=== PATIENT | male | born 1945 | race Caucasian/White ===

== ENCOUNTER 2021-11-10 07:54 | Outpatient (CLI) | payer MEDICARE, SELFPAY | END 2021-11-10 07:55 | disposition home or self-care (01) | LOC: ANHAUDIO 07:55 | PROVIDERS: PCP Family Medicine; Visit Provider Otolaryngology | DX: H90.3 Sensorineural hearing loss, bilateral (principal) | CPT/HCPCS: 92557; 92567 ==

== ENCOUNTER 2021-11-22 10:41 | Outpatient (CLI) | payer MEDICARE, SELFPAY ==
--- NOTE | ~2021-11-22 | MR_ITS ---
EXAMINATION: MR brain IAC wo/w con DATE: 11/22/2021 12:47 INDICATION: Sudden idiopathic hearing loss, left ear. TECHNIQUE: Magnetic resonance imaging (MRI) of the brain, brainstem, and internal auditory canals was performed without and with 20 mL MultiHance intravenous contrast. Sequences included sagittal and ax ial T1-weighted FSE, axial diffusion-weighted FS EPI, axial T2*-weighted GRE, axial T2-weighted FLAIR Propeller, axial T2-weighted Propeller, small kryzd-tb-nmbw coronal FIESTA, small ymzwj-xt-qugk [place] nal T1-weighted FSE, and small nttct-vx-gdcb axial T1-weighted SPGR. Postcontrast sequences included axial T1-weighted FSE, small gcqvo-en-redc coronal T1-weighted FSE, and small dubru-gb-yglk axial T1- weighted SPGR. Apparent diffusion coefficient (ADC) maps were created. COMPARISON: None. FINDINGS: There are scattered areas of nonspecific increased T2-weighted signal intensity in the cere bral white matter, which is within normal limits for the patient's age. There is no intracranial hemo rrhage, acute infarction, or abnormal intracranial mass lesion. The ventricles are normal in size. Th ere is mild mucosal thickening in the paranasal sinuses. The internal auditory canals and inner and m iddle ears are normal. The mastoid air cells are normal. The orbits are normal. IMPRESSION: 1. Normal aging brain. Reviewed, dictated and finalized at location B. [facility] IMPRESSION: 1. Normal aging brain.
[2021-11-22 12:03] LABS: Estimated Glomerular Filt Rate > 60
== END 2021-11-22 10:42 | disposition home or self-care (01) ==
LOC: ANHIMG 10:48
PROVIDERS: PCP Family Medicine; Visit Provider Otolaryngology
DX: H91.22 Sudden idiopathic hearing loss, left ear (principal)
CPT/HCPCS: 70553; A9577

== ENCOUNTER 2022-03-01 09:12 | Outpatient (CLI) | payer MEDICARE, SELFPAY ==
--- NOTE | 2022-03-01 11:15 | NEURO_ITS ---
Impression: # Complains of left upper extremity numbness with involvement of 5th finger. # Bilateral ulnar neuropathy, left more than right, across the elbows. # No Carpal Tunnel Syndrome. # Abnormal needle/EMG exam. # Clinical correlation recommended. Nerve Conduction Studies Anti Sensory Summary Table Stim Site NR Peak (ms) P-T Amp (?V) Site1 Site2 Delta-P (ms) Dist (cm) Jeff (m/s) Left Median Anti Sensory (2-3nd Digit) Wrist 3.3 14.8 Wrist 2-3nd Digit 3.3 14.0 42 Wrist 3.7 29.3 Wrist 2-3nd Digit 3.3 14.0 42 Right Median Anti Sensory (2-3nd Digit) Wrist 3.1 15.2 Wrist 2-3nd Digit 3.1 14.0 45 Wrist 3.3 26.1 Wrist 2-3nd Digit 3.1 14.0 45 Left Radial Anti Sensory (Base 1st Digit) Wrist 2.0 30.1 Wrist Base 1st Digit 2.0 0.0 Right Radial Anti Sensory (Base 1st Digit) Wrist 2.1 20.2 Wrist Base 1st Digit 2.1 0.0 Left Ulnar Anti Sensory (5th Digit) Wrist 2.8 18.2 Wrist 5th Digit 2.8 14.0 50 Right Ulnar Anti Sensory (5th Digit) Wrist 2.9 11.8 Wrist 5th Digit 2.9 14.0 48 Motor Summary Table Stim Site NR Onset (ms) O-P Amp (mV) Site1 Site2 Delta-0 (ms) Dist (cm) Jeff (m/s) Left Median Motor (Abd Poll Brev) Wrist 3.9 0.7 Elbow Wrist 5.6 32.0 57 Elbow 9.5 0.4 Right Median Motor (Abd Poll Brev) Wrist 3.4 2.8 Elbow Wrist 5.0 30.0 60 Elbow 8.4 2.4 Left Ulnar Motor (Abd Dig Minimi) Wrist 2.7 6.2 A Elbow Wrist 6.5 32.0 49 A Elbow 9.2 4.9 B Elbow Wrist 4.3 27.0 63 B Elbow 7.0 5.0 Right Ulnar Motor (Abd Dig Minimi) Wrist 2.8 4.8 A Elbow Wrist 6.0 31.0 52 A Elbow 8.8 3.9 B Elbow Wrist 4.5 24.0 53 B Elbow 7.3 2.5 F Wave Studies NR F-Lat (ms) L-R F-Lat (ms) Left Median (Mrkrs) (Abd Poll Brev) 30.93 1.40 Right Median (Mrkrs) (Abd Poll Brev) 29.53 1.40 Left Ulnar (Mrkrs) (Abd Dig Min) 32.86 1.72 Right Ulnar (Mrkrs) (Abd Dig Min) 31.14 1.72 EMG Side Muscle Nerve Root Ins Act Fibs Amp Dur Recrt Comment Right 1stDorInt Ulnar C8-T1 Nml Nml Nml Nml Nml Right Ext Indicis Radial (Post Int) C7-8 Nml Nml Nml Nml Nml Right Ext Digitorum Radial (Post Int) C7-8 Nml Nml Nml Nml Nml Right BrachioRad Radial C5-6 Nml Nml Nml Nml Nml Right PronatorTeres Median C6-7 Nml Nml Nml Nml Nml Right Abd Poll Brev Median C8-T1 Nml Nml Nml Nml Nml Left 1stDorInt Ulnar C8-T1 Nml Nml Incr >12ms Reduced Left Ext Indicis Radial (Post Int) C7-8 Nml Nml Nml Nml Nml Left Ext Digitorum Radial (Post Int) C7-8 Nml Nml Nml Nml Nml Left BrachioRad Radial C5-6 Nml Nml Nml Nml Nml Left PronatorTeres Median C6-7 Nml Nml Nml Nml Nml Left Abd Poll Brev Median C8-T1 Nml Nml Nml Nml Nml Right ABD Dig Min Ulnar C8-T1 Nml Nml Nml Nml Nml Right Biceps Musculocut C5-6 Nml Nml Nml Nml Nml Right Triceps Radial C6-7-8 Nml Nml Nml Nml Nml Right Deltoid Axillary C5-6 Nml Nml Nml Nml Nml Left ABD Dig Min Ulnar C8-T1 Nml Nml Nml Nml Nml Left Biceps Musculocut C5-6 Nml Nml Nml Nml Nml Left Triceps Radial C6-7-8 Nml Nml Nml Nml Nml Left Deltoid Axillary C5-6 Nml Nml Nml Nml Nml MTDD
== END 2022-03-01 09:13 | disposition home or self-care (01) ==
PROVIDERS: PCP Family Medicine; Visit Provider Orthopaedic Surgery Hand Surgery
DX: M19.011 Primary osteoarthritis, right shoulder (principal); G56.23 Lesion of ulnar nerve, bilateral upper limbs
CPT/HCPCS: 95886; 95911

== ENCOUNTER 2025-02-11 11:01 | Outpatient (CLI) | payer MEDICARE, SELFPAY ==
--- NOTE | ~2025-02-11 | CT_ITS ---
Non-contrast CT scan of the Abdomen and Pelvis Clinical indication: Ureteral stone Technique: 2.5 mm axial scans were obtained through the abdomen and pelvis without intravenous or or al contrast. Dose reduction technique was used on this scan by utilizing automated exposure control a nd iterative reconstruction technique. The dose-length product (DLP) was 965.52 mGy-cm. Findings: Images through the lung bases reveal no abnormalities. There is a 1.5 x 1.2 cm ovoid stone at the left renal pelvis/UPJ, without claudia hydronephrosis. Addit ional 1.1 cm nonobstructing left stone present. There are additional smaller stones the left lower re nal pole. 7 mm nonobstructing right renal stone present. No right ureteral stone or right hydronephro sis. The liver, spleen, pancreas, gallbladder, and adrenals appear normal. There are atherosclerotic calci fications of the aorta. There is no evidence of bowel obstruction. Images through the pelvis were performed. There is no evidence of ascites or lymphadenopathy. Urinary bladder unremarkable. Prostate gland is enlarged. Impression: 1.5 x 1.2 cm stone at the left UPJ/left renal pelvis. Additional bilateral renal stones, as above. No hydronephrosis. Reviewed, dictated and finalized at location . Impression: 1.5 x 1.2 cm stone at the left UPJ/left renal pelvis. Additional bilateral qi l stones, as above. No hydronephrosis.
== END 2025-02-11 11:02 | disposition home or self-care (01) ==
LOC: GOSHIMG 11:01
PROVIDERS: PCP Family Medicine; Visit Provider Family Medicine
DX: N20.1 Calculus of ureter (principal)
CPT/HCPCS: 74176

== ENCOUNTER 2025-02-21 07:52 | Outpatient (CLI) | payer MEDICARE, SELFPAY ==
--- OUTSIDE RECORDS SUMMARY | 2025-02-21 07:56 | XMS_ITS | Data Portability ---
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 He is a previous patient of Dr. Palacios, and had a left reverse total shoulder arthroplasty in March of this year. That is doing well, he has no complaints. He also has right shoulder osteoarthritis, which is been treated non operatively. He got an injection back in June, and reports that lasted up until couple of weeks ago. He returns for a repeat injection on his right side. He has diffuse soreness around his shoulder. Elevation to 100, 30 of external rotation, internal rotation to lower lumbar. He has 5/5 rotator cuff strength. Neurovascular intact. Previous x-rays reviewed, RTSA on the left side, ngrx-ht-awjc arthritis of the glenohumeral joint on the right. We will continue conservative management for his right shoulder osteoarthritis. We repeated the cortisone injection today and he tolerated well. He wants to have surgery for reverse total shoulder arthroplasty next March. We will plan to see him back in 3 months in December, and can consider repeat cortisone injection at that time. He may call us with any question or concerns before then. At his next visit, we will also order a CT scan for preop planning. [email or web address] Not available 10/09/2023 12:22:19 03/18/2024 03/18/2024 78-year-old male presents for follow up of his right shoulder. He is a previous patient of Dr. Palacios, and had a left reverse total shoulder arthroplasty in March of last year. He has right shoulder osteoarthritis, which is been treated non operatively with cortisone injections. He got an injection back in October, and reports that lasted up until couple of weeks ago. He returns for a repeat injection on his right side. He has diffuse soreness around his shoulder. Elevation to 100, 30 of external rotation, internal rotation to lower lumbar. He has 5/5 rotator cuff strength. Neurovascular intact. We will continue conservative management for his right shoulder osteoarthritis. We repeated the cortisone injection today and he tolerated well. He wants to have surgery for reverse total shoulder arthroplasty next March. He originally wanted it this March, but decided to work through the summer and wants to try again next year. We will plan to see him back in 3 months for repeat cortisone injection. [email or web address] Not available 03/18/2024 11:34:44 08/04/2024 08/04/2024 The patient has severe glenohumeral osteoarthritis of the right shoulder joint which is mdfi-yv-kukk. We talked about treatment options he wanted proceed with cortisone therefore under sterile conditions I injected the patient's right shoulder joint in the office with for cc 0.5% bupivacaine and 20 mg of Kenalog. Patient tolerated the procedure well. We will see him back as needed we can do this again in 3 months if necessary he is considering shoulder arthroplasty sometime next year we will get him by until then he voiced understanding agrees with the above plan he will also continue with naproxen 500 mg b.i.d.. Not available 08/04/2024 12:31:01 10/31/2024 10/31/2024 By previous x-ra y exam the patient is noted to have severe glenohumeral osteoarthritis of the right shoulder joint which is oysb-ho-mtty. At his request under sterile conditions I injected the patient's right shoulder joint in the office with 4 cc of 0.5% bupivacaine and 20 mg of Kenalog. Patient tolerated the procedure well. We talked about anti-inflammatory medication currently he is on naproxen 500 mg b.i.d. with food this seems to help as well. We also went over in detail the importance of range of motion exercises and gentle strengthening as tolerated he states he has a jorge alberto mechanism at home that he uses to try to keep the shoulder loose and does some very gentle strengthening as tolerated. I will see him back as needed we can do this again in 3 months if necessary when he decides he wants to proceed with surgical intervention we will get him set up for that. He voiced understanding and agreed with the above plan. Not available 10/31/2024 12:55:42 01/05/2025 01/05/2025 The patient has severe glenohumeral osteoarthritis of the right shoulder. At his request under sterile conditions I injected the patient's right shoulder joint in the office with 4 cc 0.5% bupivacaine and 20 mg of Kenalog. Patient tolerated the procedure well. He has seen Dr. Palacios previously he is going to call his office in [facility] and talked to him about getting an appointment to schedule shoulder arthroplasty at the end of March. If he needs anything else he will call he will continue with other conservative measures and call for any further problems difficulties or questions. Not available 01/05/2025 12:04:05 Plan of Treatment Reminders Order Date Submit Date Provider Last Modified By Organization Details Last Modified Time Details Appointments None recorded. Lab None recorded. Referral None recorded. Procedures injection/a spiration joint/bursa (PROC) 2024 025 [email or web address] In-Office Order, Internal Use Only DO Not Attach Compendium DO Not Attach Compendium, Do Not Delete/merge, [id number] 11:45:27 injection/a spiration joint/bursa (PROC) 2023 024 [email or web address] In-Office Order, Internal Use Only DO Not Attach Compendium DO Not Attach Compendium, Do Not Delete/merge, [id number] 4 12:14:10 injection/a spiration joint/bursa (PROC) 2023 024 [email or web address] In-Office Order, Internal Use Only DO Not Attach Compendium DO Not Attach Compendium, Do Not Delete/merge, [id number] 11:57:54 injection/a spiration joint/bursa (PROC) 2023 024 [email or web address] In-Office Order, Internal Use Only DO Not Attach Compendium DO Not Attach Compendium, Do Not Delete/merge, [id number] 4 09:40:04 injection/a spiration joint/bursa (PROC) 2022 023 [email or web address] In-Office Order, Internal Use Only DO Not Attach Compendium DO Not Attach Compendium, Do Not Delete/merge, [id number] 3 23:05:12 Surgeries None recorded. Imaging XR, shoulder 2023 024 [facility], [address] [facility] [address], [place], [address], 4 12:51:09 Medication Orders bupivacaine HCl 0.5 % (5 mg/mL) injection solution 2024 025 [facility] #[id number], [address], [id number], 5 12:14:39 Kenalog 10 mg/mL suspension for injection 2024 025 [facility], [address] [facility] [address] [place] [address], [id number], 5 12:14:39 bupivacaine HCl 0.5 % (5 mg/mL) injection solution 2023 024 [facility], [address] [place] [address], [id number], 4 12:56:30 Kenalog 10 mg/mL suspension for injection 2023 024 [facility], [address], [id number], 4 12:56:30 bupivacaine HCl 0.5 % (5 mg/mL) injection solution 2023 024 [email or web address] [facility]23943, [address] [place] [address], [id number], 4 12:10:11 Kenalog 10 mg/mL suspension for injection 2023 024 [email or web address] [facility]11345, [address] [place] [address], [id number], 4 12:10:16 bupivacaine HCl 0.5 % (5 mg/mL) injection solution 2023 024 [email or web address] [facility]06290, [address] [place] [address], [id number], 4 12:10:11 Kenalog 10 mg/mL suspension for injection 2023 024 [email or web address] [facility]79970, [address] [place] [address], [id number], 4 12:10:16 bupivacaine HCl 0.5 % (5 mg/mL) injection solution 2022 023 [email or web address] [facility] #86539, [address] [place] [address], [id number], 4 12:10:11 Kenalog 10 mg/mL suspension for injection 2022 023 [email or web address] [facility] #29789, [address] [place] [address], [phone], 4 12:10:16 Patient TargetsNo targets recorded. Patient InstructionsNo instructions recorded. Reason for Referral None Reported. Results Created Date Observation Date Name Description Value Unit Range Abnormal Flag Note LastModifiedBy Organization Detail LastModifiedTime 08/04/20 24 XR, shoul amos No observ ation record ed. [facility] [place] [address], [place], [address], 08/04/2024 12:32:20 Result Notes None recorded. Problems Name Problem SNOMED Code Status Onset Date Resolution Date Notes Provider Name and Address Organization Details Recorded Time Bilateral shoulder osteoarthr itis 1617393639391 08 Active [address] [facility] 3 06:02:59 Bilateral elbow joint pain 2155796495925 9103 Active 2021 Not [address] [facility] 3 06:02:59 Localized, primary osteoarthr itis of the shoulder region Active Not Available 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 3 06:02:59 Osteoarthr itis 471972690 Active 2021 Not [address] [facility] 3 06:02:59 Pain of right knee joint 9917565087800 00 Active [address] Not [address] [facility] 3 06:02:59 Pain of left shoulder joint 0464219629365 9109 Active 2022 Татьяна lara, [facility] 3 16:37:17 Pain of right shoulder joint 4061652330052 9100 Active 2022 DORON Santacruz, [facility] 3 11:46:24 Localized, primary osteoarthr itis of the shoulder region 994438683 Active 2023 DIANE Burgos, [facility] 4 11:56:39 Problem Notes None recorded. Procedures Surgical History Date Name Laterality Status Provider Name and Address Organization Details Recorded Time 03/18/20 24 Ortho - Cortisone Injection completed Kat Kerr NP [address], [place], [address], [facility] 03/18/2024 11:34:39 10/09/20 23 Ortho - Cortisone Injection completed Sarthak Mcfadden MD [address], [place], [address], [place] [facility] [place] [facility] 10/09/2023 12:22:35 01/06/20 21 Knee completed DORON Santacruz [facility] 10/09/2023 11:47:56 Knee Replacement completed Not Available [facility] 01/10/2023 05:56:21 Shoulder completed DORON Santacruz [facility] 10/09/2023 11:47:36 Imaging Results Imaging Date Name Status LastModified by Organiz ation Details LastModified Time 08/04/2024 XR, shoulder completed [facility] [place] [address] [facility] [address], [place], [address], 08/04/2024 12:32:20 Procedure Notes None recorded. Medical Equipment None Reported. Allergies No known drug allergies Medications Name Sig Start Date Stop Date Status Note LastModified by Organization Details LastModified Time celecoxib 200 mg capsule Take 1 capsule twice a day by oral route. 05/11 completed Not Available Not Available Not Available amoxicillin 500 mg capsule TAKE 4 CAPSULES BY MOUTH 1 HOURS PRIOR TO DENTAL APPOINTME NT 06/18 completed Not Available Not Available Not Available atorvastati n 10 mg tablet TAKE 1 TABLET BY MOUTH DAILY active Not Available Not Available No t Available meloxicam 15 mg tablet 08/18 completed Not Available Not Available Not Available bupivacaine HCl 0.5 % (5 mg/mL) injection solution Take 20 mg by injection route. 2024 active Not Available Not Available Not Avai lable acetaminoph en 300 mg-codeine 30 mg tablet TAKE 1 TO 2 TABLETS BY MOUTH EVERY 4 HOURS NEEDED FOR PAIN active Not Available Not Available No t Available ciprofloxac in 500 mg tablet active Not Available Not Available Not Available amoxicillin 500 mg tablet TK FOUR CS PO 1 HOUR B DAPP 05/11 completed Not Available Not Available Not Available amoxicillin 875 mg tablet TAKE 1 TABLET BY MOUTH TWICE DAILY 05/11 completed Not Available Not Available Not Available oxycodone-a cetaminophe n 10 mg-325 mg tablet TAKE 1 TABLET BY MOUTH EVERY 6 HOURS 05/11 completed Not Available Not Available Not Available Kenalog 10 mg/mL suspension for injection Take 20 mg by injection route. [address] [facility]: 0003- [phone]- 20 Not Available Not Available Not Available meclizine 25 mg tablet 06/18 completed Not Available Not Available Not Available naproxen 500 mg tablet TK 1 T PO BID WITH FOOD active Not Available Not Available No t Available oxycodone 5 mg tablet TAKE 1 TABLET BY MOUTH EVERY 4 HOURS NEEDED FOR PAIN 05/11 completed Not Available Not Available Not Available tadalafil 5 mg tablet TAKE 1 TABLET BY MOUTH ONCE DAILY NEEDED 10/31 completed Not Available Not Available Not Available tadalafil 20 mg tablet TAKE 1 TABLET BY MOUTH ONCE DAILY NEEDED APPROXIMA TELY 30 MINUTES BEFORE SEXUAL ACTIVITY. DO NOT TAKE MORE THAN 1 TABLET EVERY 24 HOURS active Not Available Not Available No t Available Vitamin D3 2019 active Not Available Not Available Not Avai lable lidocaine (PF) 10 mg/mL (1 %) injection solution In office injection administe red by the provider 04/07 completed [place]: 0409- 4276- [id number] Not Available Not Available Not Available ropivacaine (PF) 5 mg/mL (0.5 %) injection solution Take 8 mL by injection route. 05/11 completed Not Available Not Available Not Available Eliquis 2.5 mg tablet TAKE 1 TABLET BY MOUTH EVERY 12 HOURS ADMINISTE R FIRST POST-OP DOSE 23 HOURS AFTER PROCEDURE END TIME 05/17 completed Not Available Not Available Not Available Multi Vitamin 2019 active Not Available Not Available Not Avai lable Flucelvax Quad (PF) 60 mcg (15 mcg x 4)/0.5 mL IM syringe ADM 0.5ML IM UTD 03/22 completed Not Available Not Available Not Available Vitals Date Recorded Body height Body mass index (BMI) Body weight Pain severity - 0-10 verbal numeric rating [Score] - Reported Provider Name and Address Organization Details Last Updated DateTime 10/09/2023 182.88 cm 28.2 kg/m2 51569.21 g 4 DORON Santacruz [place] [facility] 10/09/2023 11:46:57 Date Recorded Body height Body mass index (BMI) Body weight Pain severity - 0-10 verbal numeric rating [Score] - Reported Provider Name and Address Organization Details Last Updated DateTime 03/18/2024 182.88 cm 27.7 kg/m2 64583.84 g 7 [facility] 03/18/2024 11:23:42 Date Recorded Body height Body mass index (BMI) Body weight Provider Name and Address Organization Details Last Updated DateTime 08/04/2024 182.88 cm 27.4 kg/m2 15742.66 g [facility] 08/04/2024 11:56:08 Date Recorded Body height Body mass index (BMI) Body weight Provider Name and Address Organization Details Last Updated DateTime 10/31/2024 182.88 cm 28.6 kg/m2 21379.99 g [facility] 10/31/2024 12:09:35 Date Recorded Body height Body mass index (BMI) Body weight Provider Name and Address Organization Details Last Updated DateTime 01/05/2025 182.88 cm 28.8 kg/m2 53976.58 g [facility] 01/05/2025 11:42:51 Social History Question Answer Notes LastModified by Organizat ion Details LastModified Time Tobacco Smoking Status Former Smoker Katya Lopez marco, [facility] 06/20/2023 11:05:29 What Is Your Level Of Alcohol Consumption? Occasional [id number] Information not available 01/10/2023 Sex: Unknown Functional Status None recorded. Mental Status None recorded. Family History Nothing Reported. Medical History Condition Response ARTHRITIS Y Past Encounters Encounter ID Performer Location Encounter Start Date Encounter Closed Date Diagnosis/Indication Diagnosis SNOMED-CT Code Diagnosis ICD10 Code Diagnosis Note [id number] _ATHENA_M IGRATION_ DEFAULT_1 _1 , 04/04/2021 00:00:00 04/04/2021 09:35:24 [id number] _ATHENA_M IGRATION_ DEFAULT_1 _1 , 04/12/2021 00:00:00 04/12/2021 10:32:06 [id number] _ATHENA_M IGRATION_ DEFAULT_1 _1 , 04/19/2021 00:00:00 04/19/2021 12:09:12 [id number] _ATHENA_M IGRATION_ DEFAULT_1 _1 , 04/25/2021 00:00:00 04/25/2021 14:27:28 [id number] _ATHENA_M IGRATION_ DEFAULT_1 _1 , 05/03/2021 00:00:00 05/03/2021 12:07:25 [id number] [facility] [address] [place] [address] 05/23/2021 00:00:00 05/23/2021 14:34:49 [id number] [facility] [address] [place] [address] 08/02/2021 00:00:00 08/02/2021 13:18:38 [id number] [facility] [place] [address] [place] [address] 12/19/2021 00:00:00 12/19/2021 14:27:40 [id number] [facility] [place] [address] [place] [address] 12/27/2021 00:00:00 12/27/2021 11:16:27 [id number] [facility] [address] [place] [address] 02/24/2022 00:00:00 02/24/2022 12:40:53 [id number] [facility] [address] [place] [address] 03/07/2022 00:00:00 03/07/2022 12:51:26 [id number] [facility] [address] [place] [address] 03/28/2022 00:00:00 03/28/2022 12:02:14 [id number] [facility] [address] [place] [address] 04/07/2022 00:00:00 04/07/2022 09:25:13 [id number] [facility] [address] [place] [address] 04/17/2022 00:00:00 04/17/2022 15:11:14 [id number] [facility] [place] [address] [place] [address] 04/28/2022 00:00:00 04/28/2022 10:11:40 [id number] [facility] [address] [place] [address] 05/05/2022 00:00:00 05/05/2022 12:00:02 [id number] [facility] [address] [place] [address] 05/17/2022 00:00:00 05/17/2022 17:05:52 [id number] [facility] [address] [place] [address] 05/29/2022 00:00:00 05/29/2022 15:15:32 [id number] [facility] [address] [place] [address] 06/14/2022 00:00:00 06/14/2022 16:54:44 [id number] [facility] [address] [place] [address] 07/04/2022 00:00:00 07/04/2022 12:37:34 [id number] [facility] [address] [place] [address] 09/19/2022 00:00:00 09/19/2022 11:49:38 [id number] [facility] [address] [place] [address] 10/10/2022 00:00:00 10/10/2022 13:39:45 [id number] [facility] [address] [place], [place] [address] 01/09/2023 00:00:00 01/09/2023 12:41:45 [id number] Giovanny Palacios MD [facility] [address] [place], [place] [address] 03/13/2023 11:01:51 03/13/2023 11:25:57 Osteoarthritis 132313100 M19.012 we injected the right shoulder with 8 cc xylocaine 2 cc Kenalog starting standard protocol. We schedule the patient for the left reverse total shoulder arthroplas ty we sent him for the preoperati ve CT to help with evaluation of the patient's version and inclinatio n and assess his vault for the glenospher e base plate placement patient understand s the risks the benefits alternativ es wishes to proceed with the left shoulder surgery having failed extensive conservati ve treatment over time having pain that awakens him at night pain and stiffness and interfere with his activities of daily living during the day [id number] Giovanny Palacios MD [facility] [address] [place] [address] 04/11/2023 15:44:46 04/11/2023 16:09:42 Osteoarthritis 930150853 M19.012 patient will continue with the sling for 4 weeks. We will get therapy underway to work on range of motion. No external rotation beyond 20 for the 1st 4 weeks to let the subscapula ris he will we will see him back in a few weeks for AP Y lateral and axillary x-ray views of the left shoulder [id number] Giovanny Palacios MD [facility] [address] [place] [address] 05/02/2023 14:47:19 05/02/2023 15:19:39 Osteoarthritis 153870655 M19.012 patient can now discontinu e the sling they can start working on gentle external rotation and range of motion as tolerated now light strengthen ing only still for few more weeks to help protect the biceps tenodesis and to help protect the repair of the subscapula ris no more than a couple of lb of stress. I will see him back in 3 weeks for follow-up AP Y lateral and axillary views to make sure good ingrowing and then to progress him on strengthen ing as tolerated after that [id number] AG Rudd [facility] [address] [place] [address] 05/11/2023 09:33:22 05/11/2023 10:11:55 History of right total knee replacement 1223761776 790775 Z96.651 [id number] Giovanny Palacios MD [facility] [place] [address] [place] [address] 05/23/2023 14:10:33 05/23/2023 14:46:43 Pain of left shoulder joint 3070795531 8146358 M25.512 Localized, primary osteoarthritis of the shoulder region 790723352 M19.019 patient can externally rotate and do full range of motion now as tolerated. Patient will work on light strengthen ing now from week 8 to week 12. Will come in 4 weeks from now for follow-up x-ray of the shoulder and then can progress to strengthen ing as tolerated at the 12 week point. After that the patient can be activity as tolerated will need follow up again around 6 months and a year [id number] Sarthak Mcfadden MD [facility] [address] [place] [address] 06/20/2023 11:03:40 06/20/2023 11:31:46 Bilateral shoulder osteoarthritis 7362816132 [id number] M19.465 [id number] AG Chu [facility] [address] [place] [address] 07/10/2023 11:43:09 07/10/2023 12:07:44 Bilateral shoulder osteoarthritis 4679678758 71307 M19.011 Pain of ri ght shoulder joint 7146547552 7913220 M25.957 [id number] Sarthak Mcfadden MD [facility] [address] [place] [address] 10/09/2023 11:25:28 10/09/2023 12:07:10 Pain of right shoulder joint 3673661995 2376577 M25.101 [id number] Kat Juilfs, [employer] [facility] [address] [place] [address] 03/18/2024 11:20:24 03/18/2024 11:36:55 Pain of right shoulder joint 8677981231 [id number] M25.163 [id number] AG Ma [facility] [address] [place] [address] 08/04/2024 11:52:59 08/04/2024 12:24:14 Pain of right shoulder joint 3153912922 5963311 M25.511 Localized, primary osteoarthritis of the shoulder region 032927626 M19.093 [id number] AG Ma [facility] [address] [place] [address] 10/31/2024 11:51:25 10/31/2024 12:52:35 Pain of right shoulder joint 7890151174 [id number] M25.511 Localized, primary osteoarthritis of the shoulder region 928205081 M19.464 [id number] AG Ma [facility] [address] [place] [address] 01/05/2025 11:40:33 01/05/2025 12:04:01 Localized, primary osteoarthritis of the shoulder region 315922647 M19.019 Pain of ri ght shoulder joint 2749675528 9076661 M25.511 Health Concerns Section Related Observation LastModified by Organization Detai ls LastModified Time None Recorded Concern Status LastModified by Organization Details LastModified Time None Recorded Advance Directives Directive None Recorded Payers Encounter Date Sequence Insurance Name Policy Number Policy Garcia Covered Member ID Garcia Member ID Guarantor Name 10/09/2023 1 [employer] - GOLD PLUS (MEDICARE REPLACEMENT HMO) [id number] Ney A Bergman [id number] Ney A Bergman 03/18/2024 1 [employer] - [employer]US (MEDICARE REPLACEMENT HMO) [id number] Ney A Bergman [id number] Ney A Bergman 08/04/2024 1 [employer] - GOLD PLUS (MEDICARE REPLACEMENT HMO) [id number] Ney A Bergman [id number] Ney A Bergman 10/31/2024 1 [employer] - GOLD PLUS (MEDICARE REPLACEMENT HMO) [id number] Ney A Bergman [id number] Ney A Bergman 01/05/2025 1 [employer] - GOLD PLUS (MEDICARE REPLACEMENT HMO) [id number] Ney A Bergman [id number] Ney A Bergman Notes Date Note Type Note Provider Name and Address Organization Details Recorded Time 08/04/2024 text/html Patient returns with right shoulder pain he has severe lely-wj-wdob primary osteoarthritis of the glenohumeral joint. He has shot of cortisone about 4-1/2 months ago he has been considering shoulder arthroplasty he was thinking about doing it this year but has decided that he is going to wait until next year. In the meantime he wants to get by with conservative measures he would like another shot of cortisone today denies any new symptoms no new trauma or injuries with the right shoulder. we are getting new updated x-rays today to check the progression of his osteoarthritis as it has been more than a year since his last x-rays. AG Ma [address] [place] [address], [facility] [address], [place], [address], [place] [facility] 08/04/2024 12:33:33 10/31/2024 text/html Patient returns complaining of right shoulder pain. Previous x-rays show severe wmyk-ra-ctwb glenohumeral osteoarthritis of the right shoulder. He states today the pain is about a 7 on a scale of 1-10 denies any new problems with the shoulder a shot of cortisone 3 months ago gave him about 2 months relief now his pain has flared up once again. Previously he had gotten longer relief from a cortisone injection I have told him this can vary and the the effectiveness of the injection can start to wane with time. He has pretty good function of the shoulder just lots of pain he is somewhat limited what he can do with it. He comes in today requesting a repeat cortisone injection. The patient is considering shoulder arthroplasty but he would like to wait until next year sometime. We have talked about this in detail previously. New past medical history sheet was reviewed and signed on the intake sheet of today's date drug allergies current medications family social history previous surgical history 10 point review of systems was reviewed and discussed in detail today with the patient. AG Ma [address], [address], [place], [address], [facility] [employer] [facility] [employer] [facility] 10/31/2024 12:56:27 01/05/2025 text/html the patient retu rns with right shoulder pain he has severe glenohumeral osteoarthritis which is oubw-cq-oaqz in nature. He comes in every now and then for cortisone he would like to have this injected today. His plan is to have right shoulder replacement at the end of March that will be 3 months from now. He takes naproxen 500 mg b.i.d.. He is tired of living with the shoulder he states the pain is about a 7 on a scale of 1-10. He would like 1 last shot of cortisone then he is going to plan to see Dr. Palacios who he has seen before for a shoulder arthroplasty. AG Ma [address], [address], [place], [address], [employer] [facility] [employer] 01/05/2025 12:04:27
--- NOTE | 2025-02-21 08:13 | ECG_ITS ---
Test Date: 2025-02-21 08:23:43 Measurements Intervals [place] Rate: 61 P: 38 MT: 225 QRS: -30 QRSD: 95 T: 2 QT: 396 QTc: 400 Interpretive Statements SINUS RHYTHM WITH FIRST DEGREE AV BLOCK BORDERLINE T WAVE ABNORMALITY- INFERIOR LEADS BASELINE ARTIFACT- I, II, AVR, AVL BORDERLINE ECG No previous ECG available for comparison Electronically Signed On 02-21-2025 10:07:27 CDT by Osmani Reynolds D.O.
[2025-02-21 08:23] LABS: Prothrombin Time 13.9 Seconds (11.1-14.7)
[2025-02-21 08:24] LABS: Partial Thromboplastin Time 28.2 Seconds (22.3-36.8)
== END 2025-02-21 07:53 | disposition home or self-care (01) ==
PROVIDERS: PCP Family Medicine; Visit Provider Urology
DX: Z01.818 Encounter for other preprocedural examination (principal); N20.1 Calculus of ureter; E78.2 Mixed hyperlipidemia; Z87.891 Personal history of nicotine dependence; I44.0 Atrioventricular block, first degree
CPT/HCPCS: 36415; 85610; 85730; 87086; 93005

== ENCOUNTER 2025-02-27 00:43 | Day surgery (SDC) | payer MEDICARE, SELFPAY ==
[2025-02-20 11:11] VITALS: BMI 28.8
--- NOTE | 2025-02-20 11:24 | PC.NURSE ---
Pre Radiology instructions Report to the outpatient isadora jackson on date at time for procedure Time: ____ YOU MAY BE MONITORED AT HOSPITAL FOR UP TO 4 HOURS AFTER YOUR PROCEDURE. A visitor will be allowed to accompany the patient into the hospital. You and your visitor will be asked to self-screen and do not enter if you have any COVID symptoms. A mask is OPTIONAL within the hospital. Patients are to have no food or drink 6 hours prior to procedure time Driving will be restricted after the procedure, you must have a person to drive you home. Labs will be drawn in preop area and once reviewed, you will be taken to radiology area for procedure. When the procedure is completed, you will be taken to outpatient where you will be monitored for several hours. You may have one visitor in this area. Other than holding anti-coagulants, patient may take other medication(s) as scheduled. Prior to your appointment date patients are instructed to hold anti-coagulants after discussing with ordering provider to stop. If unable to discontinue anti-coagulants please notify radiologist. ? No aspirin or warfarin (Coumadin) for 7 days prior to the procedure. ? No clopidogrel (Plavix), ticagrelor (Brilinta), prasugrel (Effient) or dabigatran (Pradaxa) for 5 days prior to the procedure. ? No rivaroxaban (Xarelto), apixaban (Eliquis), dipyridamole (Aggrenox or Persantine) or cilostazol (Pletal) for 2 days prior to the procedure. Medications to discontinue per physician: Date to take last dose: Please leave all valuables, including medications, at home the day of procedure. The hospital will not accept responsibility for valuables. Wear comfortable, loose fitting clothing.? Follow any additional instructions given to you from ordering provider. Telephone instructions given to and asked if any additional questions and then verbalized understanding. Patient advised to call scheduling provider office or registration scheduling [phone] if any additional questions.
--- NOTE | 2025-02-20 11:24 | PC.NURSE ---
Report to the Outpatient Waiting Room, entrance under the green pavilion located off [facility], at time __0630am on date __02/27/25 . Planned Procedure Time: __0830am .? Time changes happen often and if your time is changed the preop area will call you the afternoon before. - You and your visitor will be asked to self-screen and do not enter if you have any COVID symptoms. Please call surgeon if you need to reschedule. - A mask is optional within the hospital at this time. Patients may have clear liquids (water, carbonated beverages, clear teas, apple juice) until 3 hours prior to surgery with a maximum of 20 ounces. - No food from midnight until time of surgery and no smoking, or chewing tobacco (or any form of nicotine). No chewing gum, candy or mints. (05:30am) Take only the following medications with a SIP of water on the morning of surgery: ____Sertraline and Tylenol if needed DO NOT STOP ANY OF YOUR OTHER PRESCRIPTION MEDICATIONS PRIOR TO SURGERY EXCEPT THE FOLLOWING Hold all vitamins and supplements for 3 days per anesthesiologist. Date of last dose is 02/23/25 Medications to discontinue per physician Naproxen for [address] Andre Date to take last dose 02/18/25 Please no make-up, nail portuguese, hairspray, perfume, deodorant, or body powder the day of surgery.? No jewelry (including any body piercings) or valuables the day of surgery, leave them at home.? Please take a shower or bath the night before, or the morning of, surgery with an antibacterial soap.? Wear comfortable, loose fitting clothing.? - Jewelry must be removed prior to entering the operating room.? Rings and piercings that are not removed may be cut off. - The hospital will not accept responsibility for valuables.? - Please leave all valuables, including medications, at home the day of surgery. If you are going home after surgery, a licensed regional owner operator truck driver must drive you home.? - NO public transportation without another adult if you receive anesthesia. - We recommend that an adult stay with you for 24 hours following discharge. - We also recommend that you do not drive, make important decision, drink alcoholic beverages, or take any drugs that were not prescribed by your health care provider for at least 24 hours after your discharge time. Follow any additional instructions given to you from your surgeon. PT to come to [facility] tomorrow Telephone instructions given to __Patient and asked if any additional questions and then verbalized understanding. Patient advised to call surgeon office or pre surgery nurse liaison [phone] if any additional questions.
[2025-02-27] VITALS (9 sets, daily range): BP systolic 127–143; BP diastolic 61–81; PULSE 52–85; RESP 12–20; TEMP 36.6; O2SAT 97–100
--- NOTE | ~2025-02-27 | XR_ITS ---
Supine and upright views of the abdomen Clinical history: Lithotripsy Findings: Bowel gas pattern is nonspecific. No evidence for obstruction or free air. 2 cm ovoid stone present at the region of the left renal pelvis. Additional smaller left renal stones are present. Pr obable 3 mm right renal stone. There is degenerative change throughout the lumbar spine. Impression: 2 cm probable left renal pelvis stone. Additional smaller bilateral renal stones are present. Reviewed, dictated and finalized at location . Impression: 2 cm probable left renal pelvis stone. Additional smaller bilateral renal stone s are present.
--- OUTSIDE RECORDS SUMMARY | 2025-02-27 00:47 | XMS_ITS | Data Portability ---
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 We talked about treatment options he wanted [...] of the right shoulder joint which is xiqd-oc-ixfm. At his request under sterile conditions I [...] is going to call his office in [facility] and talked to him about getting an [...] DO Not Attach Compendium, Do Not Delete/merge, [id number] 11:45:27 injection/a spiration joint/bursa (PROC) 2023 024 [email or web address] In-Office Order, Internal Use Only DO Not Attach Compendium DO Not Attach Compendium, Do Not Delete/merge, [id number] 4 12:14:10 injection/a spiration joint/bursa (PROC) 2023 024 [email or web address] In-Office Order, Internal Use Only DO Not Attach Compendium DO Not Attach Compendium, Do Not Delete/merge, [id number] 11:57:54 injection/a spiration joint/bursa (PROC) 2023 024 [email or web address] In-Office Order, Internal Use Only DO Not Attach Compendium DO Not Attach Compendium, Do Not Delete/merge, [id number] 4 09:40:04 injection/a spiration joint/bursa (PROC) 2022 023 [email or web address] In-Office Order, Internal Use Only DO Not Attach Compendium DO Not Attach Compendium, Do Not Delete/merge, [id number] 3 23:05:12 Surgeries None recorded. Imaging XR, shoulder 2023 024 [facility], [address] [facility] [address], [place], [address], 4 12:51:09 Medication Orders bupivacaine HCl 0.5 % (5 mg/mL) injection solution [address] [facility] #09373, [address], [id number], 5 12:14:39 Kenalog 10 mg/mL suspension for injection [address] [facility]85155, [address] [facility] [address] [place] [address], [id number], 5 12:14:39 bupivacaine HCl 0.5 % (5 mg/mL) injection solution 2023 024 [facility] #97890, [address] [place] [address], [id number], 4 12:56:30 Kenalog 10 mg/mL suspension for injection 2023 024 [facility] #68540, [address], [id number], 4 12:56:30 bupivacaine HCl 0.5 % (5 mg/mL) injection solution 2023 024 [email or web address] [place] [facility] #45114, [address] [place] [address], [id number], 4 12:10:11 Kenalog 10 mg/mL suspension for injection 2023 024 [email or web address] [facility] #90401, [address] [place] [address], [id number], 4 12:10:16 bupivacaine HCl 0.5 % (5 mg/mL) injection solution 2023 024 [email or web address] #78956, [address] [place] [address], [id number], 4 12:10:11 Kenalog 10 mg/mL suspension for injection 2023 024 [email or web address] [place] [facility] #84695, [address] [place] [address], [id number], 4 12:10:16 bupivacaine HCl 0.5 % (5 mg/mL) injection solution 2022 023 [email or web address] [facility] #82971, [address] [place] [address], [id number], 4 12:10:11 Kenalog 10 mg/mL suspension for injection 2022 023 [email or web address] [facility] #72556, [address] [place] [address], [id number], 4 12:10:16 Patient TargetsNo targets recorded. Patient InstructionsNo instructions recorded. Reason for Referral None Reported. Results Created Date Observation Date Name Description Value Unit Range Abnormal Flag Note LastModifiedBy Organization Detail LastModifiedTime 08/04/20 24 XR, shoul amos No observ ation record ed. [facility] [place] [address], [place], [address], 08/04/2024 12:32:20 Result Notes None recorded. Problems Name Problem SNOMED Code Status Onset Date Resolution Date Notes Provider Name and Address Organization Details Recorded Time Bilateral shoulder osteoarthr itis 6005017924798 08 Active 2021 Not Available [facility] 3 06:02:59 Bilateral elbow joint pain 7265346253524 9103 Active 2021 Not Available [facility] 3 06:02:59 Localized, primary osteoarthr itis of the shoulder region Active Not Available [facility] 3 06:02:59 Ulnar nerve entrapment at elbow 814901526 Active 2021 Not Available [facility] 3 06:02:59 Osteoarthr itis 661103327 Active 2021 Not Available [facility] 3 06:02:59 Pain of right knee joint 0585908260627 00 Active 2021 Not Available [facility] 3 06:02:59 Pain of left shoulder joint 2039278711173 9109 Active 2022 Татьяна lara, [facility] [employer] [facility] 3 16:37:17 Pain of right shoulder joint 5207110207670 9100 Active 2022 DORON Santacurz, [facility] [employer] [facility] 3 11:46:24 Localized, primary osteoarthr itis of the shoulder region 127537574 Active 2023 DIANE Burgos, [facility] [employer] [facility] 4 11:56:39 Problem Notes None recorded. Procedures Surgical History Date Name Laterality Status Provider Name and Address Organization Details Recorded Time 03/18/20 24 Ortho - Cortisone Injection completed Kat Kerr NP [address], [place], [address], [facility] 03/18/2024 11:34:39 10/09/20 23 Ortho - Cortisone Injection completed Sarthak Mcfadden MD [address], [place], [address], [place] [facility] 10/09/2023 12:22:35 01/06/20 21 Knee completed DORON Santacruz [facility] 10/09/2023 11:47:56 Knee Replacement completed Not Available [facility] 01/10/2023 05:56:21 Shoulder completed DORON Santacruz [facility] 10/09/2023 11:47:36 Imaging Results Imaging Date Name Status LastModified by Organiz ation Details LastModified Time 08/04/2024 XR, shoulder completed [employer] [facility] [place] [address] [facility] [address], [place], [address], 08/04/2024 12:32:20 Procedure Notes None recorded. Medical [...] 20 mg by injection route. 2024 active [facility]: 0003- 0494- 20 Not Available Not Available [...] Updated DateTime 10/09/2023 182.88 cm 28.2 kg/m2 32929.21 g 4 DORON Santacruz [place] [facility] [employer] 10/09/2023 11:46:57 Date Recorded Body height Body mass index (BMI) Body weight Pain severity - 0-10 verbal numeric rating [Score] - Reported Provider Name and Address Organization Details Last Updated DateTime 03/18/2024 182.88 cm 27.7 kg/m2 59882.84 g 7 Michelle DelgadoFORMERLY [facility] [employer] [facility] 03/18/2024 11:23:42 Date Recorded Body height Body mass index (BMI) Body weight Provider Name and Address Organization Details Last Updated DateTime 08/04/2024 182.88 cm 27.4 kg/m2 46821.66 g [facility] [employer] [facility] 08/04/2024 11:56:08 Date Recorded Body height Body mass index (BMI) Body weight Provider Name and Address Organization Details Last Updated DateTime 10/31/2024 182.88 cm 28.6 kg/m2 89426.99 g [facility] [employer] [facility] 10/31/2024 12:09:35 Date Recorded Body height Body mass index (BMI) Body weight Provider Name and Address Organization Details Last Updated DateTime 01/05/2025 182.88 cm 28.8 kg/m2 06326.58 g [facility]ari [facility] [employer] [facility] 01/05/2025 11:42:51 Social History Question Answer Notes LastModified by Organizat ion Details LastModified Time Tobacco Smoking Status Former Smoker Katya Lopez marco, [facility] [employer] [facility] 06/20/2023 11:05:29 What Is Your Level Of Alcohol Consumption? Occasional [id number] Information not available 01/10/2023 Sex: Unknown Functional Status None recorded. Mental Status None recorded. Family History Nothing Reported. Medical History Condition Response ARTHRITIS Y Past Encounters Encounter ID Performer Location Encounter Start Date Encounter Closed Date Diagnosis/Indication Diagnosis SNOMED-CT Code Diagnosis ICD10 Code Diagnosis Note [id number] _ATHENA_M IGRATION_ DEFAULT_1 _1 , 04/04/2021 00:00:00 04/04/2021 09:35:24 [id number] _ATHENA_M IGRATION_ DEFAULT_1 _1 , 04/12/2021 00:00:00 04/12/2021 10:32:06 [id number] _ATHENA_M IGRATION_ DEFAULT_1 _1 , 04/19/2021 00:00:00 04/19/2021 12:09:12 [id number] _ATHENA_M IGRATION_ DEFAULT_1 _1 , 04/25/2021 00:00:00 04/25/2021 14:27:28 [id number] _ATHENA_M IGRATION_ DEFAULT_1 _1 , 05/03/2021 00:00:00 05/03/2021 12:07:25 [id number] [facility] [address] [place] [address] 05/23/2021 00:00:00 05/23/2021 14:34:49 [id number] [facility] [place] [address] [place] [address] 08/02/2021 00:00:00 08/02/2021 13:18:38 [id number] [facility] [address] [place] [address] 12/19/2021 00:00:00 12/19/2021 14:27:40 [id number] [facility] [address] [place] [address] 12/27/2021 00:00:00 12/27/2021 11:16:27 [id number] [facility] [address] [place] [address] 02/24/2022 00:00:00 02/24/2022 12:40:53 [id number] [facility] [address] [place] [address] 03/07/2022 00:00:00 03/07/2022 12:51:26 [id number] [facility] [address] [place] [address] 03/28/2022 00:00:00 03/28/2022 12:02:14 [id number] [facility] [address] [place] [address] 04/07/2022 00:00:00 04/07/2022 09:25:13 [id number] [facility] [address] [place] [address] 04/17/2022 00:00:00 04/17/2022 15:11:14 [id number] [facility] [address] [place] [address] 04/28/2022 00:00:00 04/28/2022 10:11:40 [id number] [facility] [place] [address] [place] [address] 05/05/2022 00:00:00 05/05/2022 12:00:02 [id number] [facility] [address] [place] [address] 05/17/2022 00:00:00 05/17/2022 17:05:52 [id number] [facility] [address] [place] [address] 05/29/2022 00:00:00 05/29/2022 15:15:32 [id number] [facility] [address] [place] [address] 06/14/2022 00:00:00 06/14/2022 16:54:44 [id number] [facility] [address] [place] [address] 07/04/2022 00:00:00 07/04/2022 12:37:34 [id number] [facility] [address] [place] [address] 09/19/2022 00:00:00 09/19/2022 11:49:38 [id number] [facility] [place] [address] [place] [address] 10/10/2022 00:00:00 10/10/2022 13:39:45 [id number] [facility] [address] [place], [place] [address] 01/09/2023 00:00:00 01/09/2023 12:41:45 [id number] Giovanny Palacios MD [facility] [address] [place], [place] [address] 03/13/2023 11:01:51 03/13/2023 11:25:57 Osteoarthritis 726600651 M19.012 we injected the right shoulder with [...] activities of daily living during the day [id number] Giovanny Palacios MD [facility] [place] [address] [place] [address] 04/11/2023 15:44:46 04/11/2023 16:09:42 Osteoarthritis 817687186 M19.012 patient will continue with the sling for 4 weeks. We will get therapy underway to work on range of motion. No external rotation beyond 20 for the 1st 4 weeks to let the subscapula ris he will we will see him back in a few weeks for AP Y lateral and axillary x-ray views of the left shoulder [id number] Giovanny Palacios MD [facility] [place] [address] [place] [address] 05/02/2023 14:47:19 05/02/2023 15:19:39 Osteoarthritis 428959700 M19.012 patient can now discontinu e the [...] on strengthen ing as tolerated after that [id number] AG Rudd [facility] [place] [address] [place] [address] 05/11/2023 09:33:22 05/11/2023 10:11:55 History of right total knee replacement 2032839389 241992 Z96.651 [id number] Giovanny Palacios MD [facility] [place] [address] [place] [address] 05/23/2023 14:10:33 05/23/2023 14:46:43 Pain of left shoulder joint 7995353905 6529369 M25.512 Localized, primary osteoarthritis of the shoulder region 679628933 M19.019 patient can externally rotate and do [...] again around 6 months and a year [id number] Sarthak Mcfadden MD [facility] [place] [address] [place] [address] 06/20/2023 11:03:40 06/20/2023 11:31:46 Bilateral shoulder osteoarthritis 5870577783 73273 M19.612 [id number] AG Chu [facility] [place] [address] [place] [address] 07/10/2023 11:43:09 07/10/2023 12:07:44 Bilateral shoulder osteoarthritis 2595384239 23735 M19.011 Pain of ri ght shoulder joint 9532568015 6227283 M25.165 [id number] Sarthak Mcfadden MD [facility] [place] [address] [place] [address] 10/09/2023 11:25:28 10/09/2023 12:07:10 Pain of right shoulder joint 4666506269 [id number] M25.578 [id number] Kat Juilfs, [employer] [facility] [address] [place] [address] 03/18/2024 11:20:24 03/18/2024 11:36:55 Pain of right shoulder joint 2018141145 7916006 M25.946 [id number] AG Ma [facility] [address] [place] [address] 08/04/2024 11:52:59 08/04/2024 12:24:14 Pain of right shoulder joint 5426211254 3625207 M25.511 Localized, primary osteoarthritis of the shoulder region 270486907 M19.611 [id number] AG Ma [facility] [address] [place] [address] 10/31/2024 11:51:25 10/31/2024 12:52:35 Pain of right shoulder joint 8421609379 8140101 M25.511 Localized, primary osteoarthritis of the shoulder region 113536656 M19.595 [id number] AG Ma [facility] [address] [place] [address] 01/05/2025 11:40:33 01/05/2025 12:04:01 Localized, primary osteoarthritis of the shoulder region 112758181 M19.019 Pain of ri ght shoulder joint 9928114407 3335904 M25.511 Health Concerns Section Related Observation LastModified by Organization Detai ls LastModified Time None Recorded Concern Status LastModified by Organization Details LastModified Time None Recorded Advance Directives Directive None Recorded Payers Encounter Date Sequence Insurance Name Policy Number Policy Garcia Covered Member ID Garcia Member ID Guarantor Name 10/09/2023 1 [employer] - G[employer]US (MEDICARE REPLACEMENT HMO) [id number] Ney A Bergman [id number] Ney A Bergman 03/18/2024 1 [employer] - GOLD PLUS (MEDICARE REPLACEMENT HMO) [id number] Ney A Bergman [id number] Ney A Bergman 08/04/2024 1 [employer] - GOLD PLUS (MEDICARE REPLACEMENT HMO) [id number] Ney A Bergman [id number] Ney A Bergman 10/31/2024 1 [employer] - GOLD PLUS (MEDICARE REPLACEMENT HMO) [id number] Ney A Bergman [id number] Ney A Bergman 01/05/2025 1 [employer] - GOLD PLUS (MEDICARE REPLACEMENT HMO) [id number] Ney A Bergmna [id number] Ney A Bergman Notes Date Note Type Note Provider Name and Address Organization Details Recorded Time 08/04/2024 text/html Patient returns with right shoulder pain he has severe icfk-pw-yeod primary osteoarthritis of the glenohumeral joint. He [...] year since his last x-rays. AG Ma [address] [place] [address], [facility] [address], [place], [address], [place] [facility] 08/04/2024 12:33:33 10/31/2024 text/html Patient returns complaining of right shoulder pain. Previous x-rays show severe aate-se-dycj glenohumeral osteoarthritis of the right shoulder. He [...] AG Ma [address], [place], [address], [facility] [employer] [facility] [employer] [facility] 10/31/2024 12:56:27 01/05/2025 text/html the patient retu rns with right shoulder pain he has severe glenohumeral osteoarthritis which is mmxt-gy-twvu in nature. He comes in every now [...] AG Ma [address], [place], [address], [email or web address] [facility] [employer] 01/05/2025 12:04:27
--- NOTE | 2025-02-27 06:12 | WPDHPUPDATE1 ---
History and Physical Update Update Date/Time: 02/27/25 06:12 History and Physical has been reviewed, including an updated exam of the patient. There are NO changes in the patient's condition. Risks, benefits, and alternatives have been discussed and questions answered. Patient agrees to proceed with procedure.
[2025-02-27] MEDS: LACTATED RINGERS 1,000 ML 30 ML IV CONT ×2 (07:00→09:10)
--- NOTE | 2025-02-27 07:45 | WPDANESEPP ---
Anes - Eval Pre Procedure Procedure: Operation Date: 02/27/25 08:30 Proposed Procedures p Left Extracorporeal Shock Wave Lithotripsy - Jony Andre MD s Cystoscopy Left Ureteral Stent Placement - Jony Andre MD Date/Time: 02/27/25 07:45 Pre Op Diagnosis: Lt Renal Stone Patient Data Age: 79 Gender: M Height: 1.83 m Weight: 95.1 kg Last Vital Signs Temp 97.9 F 02/27/25 07:37 Pulse 85 02/27/25 07:37 Resp 16 02/27/25 07:37 BP 140/73 02/27/25 07:37 Pulse Ox 97 02/27/25 07:37 O2 Del Method Room Air 02/27/25 07:37 Allergies Allergy/AdvReac Type Severity Reaction Status Date / Time No Known Allergies Allergy Verified 02/27/25 07:32 Home Medications ?Medication ?Instructions ?Recorded ?Confirmed ?Type cholecalciferol (vitamin D3) 25 25 mcg PO DAILY 04/21/20 02/20/25 History mcg (1,000 unit) tablet multivitamin 1 tablet PO DAILY 04/21/20 02/27/25 History acetaminophen 325 mg capsule 325 mg PO Q6H PRN pain 10/10/21 02/20/25 History (Tylenol) loratadine 10 mg tablet (Claritin) 10 mg PO DAILY 03/26/23 02/20/25 History atorvastatin 10 mg tablet See Rx Instructions .Route 11/19/24 02/20/25 Rx .COMPLEX #90 tabs tadalafil 20 mg tablet (Cialis) 20 mg PO DAILY PRN sexual activity 01/02/25 02/20/25 Rx #27 tabs sertraline 50 mg tablet (Zoloft) 50 mg PO DAILY #90 tabs 02/09/25 02/20/25 Rx meclizine 25 mg tablet 25 mg PO QID PRN dizziness 02/20/25 02/20/25 History naproxen 500 mg tablet See Rx Instructions .Route 02/23/25 02/27/25 Rx .COMPLEX #180 tabs Patient hx anesthesia problems: none Family hx anesthesia problems: none Results Review: All pre-operative results and documents have been reviewed as part of the pre-operative evaluation. [facility] Past Medical History Medical History Prediabetes Mixed hyperlipidemia Lumbosacral radiculopathy at L4 Erectile dysfunction Functional dyspepsia Inguinal hernia, left Ureteral calculus, left History of mumps History of measles History of chicken pox Surgical History Surgical History H/O shoulder replacement Left 2022 History of total right knee replacement (TKR) History of elbow surgery (~2018) History of total left knee replacement (TKR) (~2019) Family History Family History Father Patient's father is Social History Social History Smoking packs per day: 2 Smoking cigarettes per day: 40.0 Years smoked: 11 Smoking pack-years: 22.00 Smoking status: Former smoker Tobacco type: cigarettes Smoking end date: 11/12/74 Alcohol intake: never Substance use: never Substance use type: does not use Lack of Transportation: No Lack of Food: Never True Current Housing: I Have Housing Concerned About Future Housing: No Difficulty Paying Gas/Electric Bills: No Difficulty Paying for Meds: No Currently Unemployed: No Education: High School Diploma/GED Difficulty w/ Childcare or Family Care: No Living arrangements: with family Additional living arrangements comments: Gender identity (if verbalized by the patient): Male Spiritual care concerns: No Exam Day of Procedure 02/27/25 07:45 Patient weight: overweight Heart: regular rate and rhythm and other (NSR with 1st DHB)
--- NOTE | 2025-02-27 08:26 | P.PNAN_ITS ---
Anes - Eval Final PreProcedure Day of Procedure 02/27/25 08:26 Patient weight: overweight Heart: regular rate and rhythm Lungs: clear to auscultation Airway: Mallampati scale class II Neurological: alert and oriented Last oral intake: >/= 8 hours ASA classification: III Emergent: no Anesthetic plan: proceed Anesthesia type and monitoring: general LMA and standard monitoring Results Review: All pre-operative results and documents have been reviewed as part of the pre- operative evaluation. Informed Consent: The patient's anesthetic plan and its attendant risks and benefits were discussed with the patient/family/POA. Questions were solicited and answers provided to the satisfaction of the patient/family/POA.
[2025-02-27] MEDS: ceFAZolin 2 GM/D5W 50 ML 2 GM/50 ML BAG IVPB (08:30)
--- NOTE | 2025-02-27 08:52 | W.PM.PROC2 ---
Procedure Note - Detailed Date of Procedure 02/27/25 Pre-op Diagnosis Left Renal Stones Post-op Diagnosis Same Procedure Performed Cystoscopy, left ureteral stent placement, left ESWL Surgeon Jony Andre MD Anesthesia General Description of Procedure The patient was brought to the operative suite where he was placed in the supine position on the Dornier lithotripter table. Flexible cystoscopy was undertaken with a 16F flexible cystoscopy. There were no urethral strictures. The prostatic urethra estimated length was []cm. There was mild obstruction of the prostatic urethra with no median lobe enlargement. The bladder mucosa was normal and there was a single, orthotopic ureteral orifice bilaterally. A 0.035 glidewire was advanced into the left renal pelvis under fluoroscopy. A 4.8F J-J ureteral stent was positioned with the proximal coil in the renal pelvis and the distal coil in the bladder. The patient was then repositioned in the supine position with the focal point of the lithotriptor on a 6-7mm left mid-ureteral calculus. A total of 2500 shocks were delivered at a power setting of 4. There appeared to be good fragmentation of the stone. The patient tolerated the procedure well and was taken to the recovery room in good condition. Drains No Packing No Pathology None sent Complications No immediate complications
[2025-02-27] MEDS: oxyCODONE HCL (*CRX) 5 MG TAB IR PO (10:12)
== END 2025-02-27 10:53 | disposition home or self-care (01) ==
PROVIDERS: PCP Family Medicine; Visit Provider Urology
PROC: (CPT 50590; principal; 2025-02-27 08:30)
PROC: (CPT 52352; 2025-02-27 08:30)
DX: N20.1 Calculus of ureter (principal); Z87.891 Personal history of nicotine dependence
CPT/HCPCS: 52332; 50590; 74018; A9270; C1758; C1769; C2617; J0690; J3010; J7120

== ENCOUNTER 2025-03-17 13:31 | Outpatient (CLI) | payer MEDICARE, SELFPAY ==
--- NOTE | ~2025-03-17 | XR_ITS ---
XR abdomen/kub 1V Ordering provider: Jnoy Andre MD History: . N20.0 - Calculus of kidney . Comparison: None. FINDINGS: BOWEL: Nonobstructive bowel gas pattern. ORGANOMEGALY: None. SIGNIFICANT PATHOLOGIC CALCIFICATIONS: Calcifications in the renal areas suggestive of stones.. Left double-J stent. OTHER: No free air is seen under the diaphragm. Degenerative changes of the spine. Bilateral sacroili acs. Bilateral hip osteoarthritic changes. IMPRESSION: NO ACUTE ABDOMINAL FINDINGS. Bilateral stones with left double-J stent. Reviewed, dictated and finalized at location A.
--- OUTSIDE RECORDS SUMMARY | 2025-03-17 13:35 | XMS_ITS | Data Portability ---
Author Organization [place] - [facility] [employer], Main Office Address [address] [place] [address] Care Team Providers Care Offset Printing Operator Name Role Phone IMELDA HAMILTON Primary Care Provider IMELDA HAMILTON Referring Provider [phone] Assessment Encounter Date Assessment Date Assessment LastModified [...] x-rays reviewed, RTSA on the left side, pntz-sh-zddb arthritis of the glenohumeral joint on the [...] of the right shoulder joint which is vewg-hf-kxjd. We talked about treatment options he wanted [...] of the right shoulder joint which is yopm-cz-ekxr. At his request under sterile conditions I [...] is going to call his office in [facility] and talked to him about [...] DO Not Attach Compendium, Do Not Delete/merge, [id number] 5 11:45:27 injection/a spiration joint/bursa (PROC) 2023 024 [email or web address] In-Office Order, Internal Use Only DO Not Attach Compendium DO Not Attach Compendium, Do Not Delete/merge, [id number] 4 12:14:10 injection/a spiration joint/bursa (PROC) 2023 024 [email or web address] In-Office Order, Internal Use Only DO Not Attach Compendium DO Not Attach Compendium, Do Not Delete/merge, [id number] 4 11:57:54 injection/a spiration joint/bursa (PROC) 2023 024 [email or web address] In-Office Order, Internal Use Only DO Not Attach Compendium DO Not Attach Compendium, Do Not Delete/merge, [id number] 4 09:40:04 injection/a spiration joint/bursa (PROC) 2022 023 [email or web address] In-Office Order, Internal Use Only DO Not Attach Compendium DO Not Attach Compendium, Do Not Delete/merge, [id number] 3 23:05:12 Surgeries None recorded. Imaging XR, shoulder 2023 024 [facility] [place], [address], [place], [address], 4 12:51:09 Medication Orders bupivacaine HCl 0.5 % (5 mg/mL) injection solution 2024 025 [facility] #06699, [address], [id number], 5 12:14:39 Kenalog 10 mg/mL suspension for injection 2024 025 [facility] #14083, [address] [place] [address], [id number], 5 12:14:39 bupivacaine HCl 0.5 % (5 mg/mL) injection solution 2023 024 [facility] #80837, [address] [place] [address], [id number], 4 12:56:30 Kenalog 10 mg/mL suspension for injection [address] [facility] #01505, [address], [id number], 4 12:56:30 bupivacaine HCl 0.5 % (5 mg/mL) injection solution [email or web address] [facility] #65375, [address] [place] [address], [id number], 4 12:10:11 Kenalog 10 mg/mL suspension for injection 2023 024 [email or web address] [facility] #90101, [address] [place] [address], [id number], 4 12:10:16 bupivacaine HCl 0.5 % (5 mg/mL) injection solution 2023 024 [email or web address] [facility] #22187, [address] [place] [address], [id number], 4 12:10:11 Kenalog 10 mg/mL suspension for injection [email or web address] [facility] #23716, [address] [place] [address], [id number], 4 12:10:16 bupivacaine HCl 0.5 % (5 mg/mL) injection solution 2022 023 [email or web address] [facility] #67900, [address] [place] [address], [id number], 4 12:10:11 Kenalog 10 mg/mL suspension for injection 2022 023 [email or web address] [facility] #02345, [address] [place] [address], [id number], 4 12:10:16 Patient TargetsNo targets recorded. Patient InstructionsNo instructions recorded. Reason for Referral None Reported. Results Created Date Observation Date Name Description Value Unit Range Abnormal Flag Note LastModifiedBy Organization Detail LastModifiedTime 08/04/20 24 XR, shoul amos No observ ation record ed. [facility] [place] [address], [place], [address], 08/04/2024 12:32:20 03/12/20 25 xr shoul amos RT 2V+ [facility] [address] [facility] [place] [address] Patien t Name: PARTH TEJEDA Access ion #: [id number] Sex: M : 1944 8 Dictat ed By: Isabela Unger Attend ing Physic kiana: LEAH PALACIOS Orderi ng Physic kiana: LEAH PALACIOS Exam Date: 2024 10:21 AM Exam Name: XR SHOULD ER RT 2V+ Admitt ing Diagno sis(es ): CLINIC AL INDICA TION: right should er joint pain TECHNI QUE: 5 radiog raphic views of the right should er were obtain ed. Compar milady: XR SHOULD ER LT on DOS: 3, CT SHOULD ER LT WO on DOS: 03/20/23 FINDIN GS/IMP RESSIO N: There is no eviden ce of acute fractu re or disloc ation. Modera te osteoa rthros is of the right glenoh umeral joint. Modera te osteoa rthros is of the right acromi oclavi cular joint Electr onical ly Signed by: Isabela Unger at 2024 11:07: 01 AM Page 1 INTERFACE [facility] (Imaging) [address] [place], [address], 03/12/2025 12:09:12 Result Notes None recorded. Problems Name Problem SNOMED Code Status Onset Date Resolution Date Notes Provider Name and Address Organization Details Recorded Time Bilateral shoulder osteoarthr itis 1734441720867 08 Active 2021 Not Available [facility] 3 06:02:59 Bilateral elbow joint pain 6521566090850 9103 Active 2021 Not Available [facility] 3 06:02:59 Localized, primary osteoarthr itis of the shoulder region 603588454 Active Not Available [facility] 3 06:02:59 Ulnar nerve entrapment at elbow 339945664 Active 2021 Not Available [facility] 3 06:02:59 Osteoarthr itis 986183132 Active 2021 Not Available [facility] 3 06:02:59 Pain of right knee joint 0346349119357 00 Active 2021 Not Available [facility] 3 06:02:59 Pain of left shoulder joint 6746871818585 9109 Active 2022 Татьяна Ramos mar[place], [place] [employer] [facility] [employer] [facility] 3 16:37:17 Pain of right shoulder joint 0728933493643 9100 Active 2022 DORON Santacruz, [place] [employer] [facility] [employer] [facility] 3 11:46:24 Localized, primary osteoarthr itis of the shoulder region 178365187 Active 2023 DIANE Burgos, [employer] [facility] [employer] [facility] 4 11:56:39 Problem Notes None recorded. Procedures Surgical History Date Name Laterality Status Provider Name and Address Organization Details Recorded Time 03/18/20 24 Ortho - Cortisone Injection completed Kat Kerr NP [address] [facility], [facility] [address], [place], [address], [facility] [employer] [facility] 03/18/2024 11:34:39 10/09/20 23 Ortho - Cortisone Injection completed Sarthak Mcfadden MD [address] [facility], [facility] [address], [place], [address], [facility] [employer] [facility] 10/09/2023 12:22:35 01/06/20 21 Knee completed DORON Santacruz [place] [employer] [facility] [employer] [facility] 10/09/2023 11:47:56 Knee Replacement completed Not Available [facility] 01/10/2023 05:56:21 Shoulder completed D[place]ON Santacruz [place] [employer] [facility] [employer] [facility] 10/09/2023 11:47:36 Imaging Results Imaging Date Name Status LastModified by Organiz ation Details LastModified Time 08/04/2024 XR, shoulder completed [facility] [place] [address], [place], [address], 08/04/2024 12:32:20 03/12/2025 xr shoulder RT 2V+ active INTERFACE [facility] (Imaging) [address], [place], [address], 03/12/2025 12:09:12 Procedure Notes None recorded. Medical Equipment None [...] 20 mg by injection route. 2024 active [place]: 0003- 0494- 20 Not Available Not Available [...] administe red by the provider 04/07 completed [facility]: 0409- 4276- 17 Not Available Not Available [...] Updated DateTime 10/09/2023 182.88 cm 28.2 kg/m2 18678.21 g 4 DORON Santacruz [facility] [employer] 10/09/2023 11:46:57 Date Recorded Body height Body mass index (BMI) Body weight Pain severity - 0-10 verbal numeric rating [Score] - Reported Provider Name and Address Organization Details Last Updated DateTime 03/18/2024 182.88 cm 27.7 kg/m2 57137.84 g 7 DORON Santacruz [facility] [employer] 03/18/2024 11:23:42 Date Recorded Body height Body mass index (BMI) Body weight Provider Name and Address Organization Details Last Updated DateTime 08/04/2024 182.88 cm 27.4 kg/m2 29499.66 g Merari Valencia CNA [facility] [employer] 08/04/2024 11:56:08 Date Recorded Body height Body mass index (BMI) Body weight Provider Name and Address Organization Details Last Updated DateTime 10/31/2024 182.88 cm 28.6 kg/m2 42491.99 g Merari Valencia CNA [facility] [employer] [facility] 10/31/2024 12:09:35 Date Recorded Body height Body mass index (BMI) Body weight Provider Name and Address Organization Details Last Updated DateTime 01/05/2025 182.88 cm 28.8 kg/m2 10525.58 g Merari Valencia CNA [facility] 01/05/2025 11:42:51 Social History Question Answer Notes LastModified by Organizat ion Details LastModified Time Tobacco Smoking Status Former Smoker Katya Nicholsonjessica lara, [facility] 06/20/2023 11:05:29 What Is Your Level Of Alcohol Consumption? Occasional [id number] Information not available 01/10/2023 Sex: Unknown Functional Status None recorded. Mental Status None recorded. Family History Nothing Reported. Medical History Condition Response ARTHRITIS Y Past Encounters Encounter ID Performer Location Encounter Start Date Encounter Closed Date Diagnosis/Indication Diagnosis SNOMED-CT Code Diagnosis ICD10 Code Diagnosis Note [id number] [facility] _ATHENA_M IGRATION_ DEFAULT_1 _1 , 04/04/2021 00:00:00 04/04/2021 09:35:24 [id number] [facility] _ATHENA_M IGRATION_ DEFAULT_1 _1 , 04/12/2021 00:00:00 04/12/2021 10:32:06 [id number] [facility] _ATHENA_M IGRATION_ DEFAULT_1 _1 , 04/19/2021 00:00:00 04/19/2021 12:09:12 [id number] Ad.[facility] _ATHENA_M IGRATION_ DEFAULT_1 _1 , 04/25/2021 00:00:00 04/25/2021 14:27:28 [id number] Ad.[facility] _ATHENA_M IGRATION_ DEFAULT_1 _1 , 05/03/2021 00:00:00 05/03/2021 12:07:25 [id number] Darien Kingston MD [facility] [place] [address] [place] [address] 05/23/2021 00:00:00 05/23/2021 14:34:49 [id number] Leah Palacios MD [facility] [place] [address] [place] [address] 08/02/2021 00:00:00 08/02/2021 13:18:38 [id number] Darien Kingston MD [facility] [place] [address] [place] [address] 12/19/2021 00:00:00 12/19/2021 14:27:40 [id number] MD LUIGI PlataS[facility] [place] [address] [place] [address] 12/27/2021 00:00:00 12/27/2021 11:16:27 [id number] Darien Kingston MD [facility] [place] [address] [place] [address] 02/24/2022 00:00:00 02/24/2022 12:40:53 [id number] Leah Palacios MD [facility] [place] [address] [place] [address] 03/07/2022 00:00:00 03/07/2022 12:51:26 [id number] Leah Palacios MD [facility] [place] [address] [place] [address] 03/28/2022 00:00:00 03/28/2022 12:02:14 [id number] Darien Kingston MD [facility] [place] [address] [place] [address] 04/07/2022 00:00:00 04/07/2022 09:25:13 [id number] Darien Kingston MD [facility] [place] [address] [place] [address] 04/17/2022 00:00:00 04/17/2022 15:11:14 [id number] Darien Kingston MD [facility] [place] [address] [place] [address] 04/28/2022 00:00:00 04/28/2022 10:11:40 [id number] Leah Palacios MD [facility] [place] [address] [place] [address] 05/05/2022 00:00:00 05/05/2022 12:00:02 [id number] Darien Kingston MD Richard[facility] [place] [address] [place] [address] 05/17/2022 00:00:00 05/17/2022 17:05:52 [id number] Darien Kingston MD [facility] [place] [address] [place] [address] 05/29/2022 00:00:00 05/29/2022 15:15:32 [id number] Leah Palacios MD [facility] [place] [address] [place] [address] 06/14/2022 00:00:00 06/14/2022 16:54:44 [id number] Leah Palacios MD [facility] [place] [address] [place] [address] 07/04/2022 00:00:00 07/04/2022 12:37:34 [id number] Leah Palacios MD [facility] [place] [address] [place] [address] 09/19/2022 00:00:00 09/19/2022 11:49:38 [id number] Leah Palacios MD [facility] [place] [address] [place] [address] 10/10/2022 00:00:00 10/10/2022 13:39:45 [id number] Leah Palacios MD [facility] [place] [address] [place] [address] 01/09/2023 00:00:00 01/09/2023 12:41:45 [id number] Leah Palacios MD [facility] [place] [address] [place] [address] 03/13/2023 11:01:51 03/13/2023 11:25:57 Osteoarthritis 300283359 M19.012 we injected the right shoulder with [...] activities of daily living during the day [id number] Leah Palacios MD [facility] [place] [address] [place] [address] 04/11/2023 15:44:46 04/11/2023 16:09:42 Osteoarthritis 514687570 M19.012 patient will continue with the sling for 4 weeks. We will get therapy underway to work on range of motion. No external rotation beyond 20 for the 1st 4 weeks to let the subscapula ris he will we will see him back in a few weeks for AP Y lateral and axillary x-ray views of the left shoulder [id number] Leah Palacios MD [facility] [place] [address] [place] [address] 05/02/2023 14:47:19 05/02/2023 15:19:39 Osteoarthritis 698534182 M19.012 patient can now discontinu e the [...] on strengthen ing as tolerated after that [id number] Darien Kingston MD [facility] [place] [address] [place] [address] 05/11/2023 09:33:22 05/11/2023 10:11:55 History of right total knee replacement 3392500603 310372 Z96.651 [id number] Leah Palacios MD [facility] [place] [address] [place] [address] 05/23/2023 14:10:33 05/23/2023 14:46:43 Pain of left shoulder joint 1205338992 4062411 M25.512 Localized, primary osteoarthritis of the shoulder region 029301502 M19.019 patient can externally rotate and do [...] again around 6 months and a year [id number] Sarthak Mcfadden MD [facility] [place] [address] [place] [address] 06/20/2023 11:03:40 06/20/2023 11:31:46 Bilateral shoulder osteoarthritis 7961624072 87998 M19.288 [id number] Sarthak Mcfadden MD [facility] [place] [address] [place] [address] 07/10/2023 11:43:09 07/10/2023 12:07:44 Bilateral shoulder osteoarthritis 3625102973 09124 M19.011 Pain of ri ght shoulder joint 0950609606 7285152 M25.487 [id number] Sarthak Mcfadden MD [facility] [place] [address] [place] [address] 10/09/2023 11:25:28 10/09/2023 12:07:10 Pain of right shoulder joint 3567666256 7028972 M25.943 [id number] Sarthak Mcfadden MD [facility] [place] [address] [place] [address] 03/18/2024 11:20:24 03/18/2024 11:36:55 Pain of right shoulder joint 6116874760 1217031 M25.750 [id number] Sarthak Mcfadden MD [facility] [place] [address] [place] [address] 08/04/2024 11:52:59 08/04/2024 12:24:14 Pain of right shoulder joint 5450411763 1987932 M25.511 Localized, primary osteoarthritis of the shoulder region 551568394 M19.226 [id number] Sarthak Mcfadden MD [facility] [place] [address] [place] [address] 10/31/2024 11:51:25 10/31/2024 12:52:35 Pain of right shoulder joint 6310885320 5257313 M25.511 Localized, primary osteoarthritis of the shoulder region 376993292 M19.040 [id number] Sarthak Mcfadden MD [facility] [place] [address] [place] [address] 01/05/2025 11:40:33 01/05/2025 12:04:01 Localized, primary osteoarthritis of the shoulder region 683915211 M19.019 Pain of ri ght shoulder joint 7843669834 4075571 M25.511 Health Concerns Section Related Observation LastModified by Organization Detai ls LastModified Time None Recorded Concern Status LastModified by Organization Details LastModified Time None Recorded Advance Directives Directive None Recorded Payers Encounter Date Sequence Insurance Name Policy Number Policy Garcia Covered Member ID Garcia Member ID Guarantor Name 10/09/2023 1 [employer] (MEDICARE REPLACEMENT HMO) [id number] Parth A Tejeda [id number] Parth A Tejeda 03/18/2024 1 [employer] (MEDICARE REPLACEMENT HMO) [id number] Parth A Tejeda [id number] Parth A Tejeda 08/04/2024 1 [employer] (MEDICARE REPLACEMENT HMO) [id number] Parth A Tejeda [id number] Parth A Tejeda 10/31/2024 1 [employer] (MEDICARE REPLACEMENT HMO) [id number] Parth A Tejeda [id number] Parth A Tejeda 01/05/2025 1 [employer] (MEDICARE REPLACEMENT HMO) [id number] Parth A Tejeda [id number] Parth A Tejeda Notes Date Note Type Note Provider Name and Address Organization Details Recorded Time 08/04/2024 text/html Patient returns with right shoulder pain he has severe hsgo-yd-rfbp primary osteoarthritis of the glenohumeral joint. He [...] year since his last x-rays. [place] [address] [facility] [place] [address], [place], [address], [place] [facility] 08/04/2024 12:33:33 10/31/2024 text/html Patient returns complaining of right shoulder pain. Previous x-rays show severe rsvs-rx-cpmu glenohumeral osteoarthritis of the right shoulder. He [...] the patient. AG Ma [address], [facility] [address], [place], [address], [facility] [employer] [facility] 10/31/2024 12:56:27 01/05/2025 text/html the patient retu rns with right shoulder pain he has severe glenohumeral osteoarthritis which is amcg-pq-xvsd in nature. He comes in every now [...] AG Ma [address], [address], [place], [address], [facility] [employer] 01/05/2025 12:04:27
== END 2025-03-17 13:32 | disposition home or self-care (01) ==
PROVIDERS: PCP Family Medicine; Visit Provider Urology
DX: N20.0 Calculus of kidney (principal)
CPT/HCPCS: 74018

== ENCOUNTER 2025-03-27 09:50 | Outpatient (CLI) | payer MEDICARE, SELFPAY ==
--- NOTE | ~2025-03-27 | XR_ITS ---
XR abdomen/kub 1V 03/27/2025 10:14 Indication: Kidney stones Procedure: KUB Comparison: 03/17/2025 Findings: There is a left internal ureteral stent present. There are multiple bilateral renal stones, most numerous in the left kidney. Nonobstructive bowel gas pattern. There are no stones in the expec geoff course of the ureters, although these areas are obscured by bowel content. No severe lumbar spond ylosis with dextroscoliosis. Impression: 1: Bilateral nephrolithiasis. Reviewed, dictated and finalized at location A. Impression: 1: Bilateral nephrolithiasis.
--- OUTSIDE RECORDS SUMMARY | 2025-03-27 09:56 | XMS_ITS | Data Portability ---
Author Organization [place] [facility], Main Office Address [address] [place] [address] Care Team Providers Care Sales Support Advisor Name Role Phone IMELDA HAMILTON Primary Care Provider [phone] IMELDA HAMILTON Referring Provider [phone] Assessment Encounter Date Assessment Date Assessment LastModified [...] x-rays reviewed, RTSA on the left side, cfbj-cz-qobu arthritis of the glenohumeral joint on the [...] of the right shoulder joint which is mnmc-qu-pmfq. We talked about treatment options he wanted [...] of the right shoulder joint which is vwbr-jh-uzfs. At his request under sterile conditions I [...] is going to call his office in [facility] and talked to him about getting [...] DO Not Attach Compendium, Do Not Delete/merge, [id number] 5 11:45:27 injection/a spiration joint/bursa (PROC) 2023 024 [email or web address] In-Office Order, Internal Use Only DO Not Attach Compendium DO Not Attach Compendium, Do Not Delete/merge, [id number] 4 12:14:10 injection/a spiration joint/bursa (PROC) 2023 024 [email or web address] In-Office Order, Internal Use Only DO Not Attach Compendium DO Not Attach Compendium, Do Not Delete/merge, [id number] 4 11:57:54 injection/a spiration joint/bursa (PROC) 2023 024 [email or web address] In-Office Order, Internal Use Only DO Not Attach Compendium DO Not Attach Compendium, Do Not Delete/merge, [id number] 4 09:40:04 injection/a spiration joint/bursa (PROC) 2022 023 [email or web address] In-Office Order, Internal Use Only DO Not Attach Compendium DO Not Attach Compendium, Do Not Delete/merge, [id number] 3 23:05:12 Surgeries None recorded. Imaging XR, shoulder 2023 024 [facility] [place], [address], [place], [address], 4 12:51:09 Medication Orders bupivacaine HCl 0.5 % (5 mg/mL) injection solution [address] [facility] #65347, [address], [id number], 5 12:14:39 Kenalog 10 mg/mL suspension for injection [address] [facility], [address] [place] [address], [id number], 5 12:14:39 bupivacaine HCl 0.5 % (5 mg/mL) injection solution 2023 024 [facility]512[facility], [address] [place] [address], [id number], 4 12:56:30 Kenalog 10 mg/mL suspension for injection [address] [facility], [address], [id number], 4 12:56:30 bupivacaine HCl 0.5 % (5 mg/mL) injection solution [email or web address] [facility] #78991, [address] [place] [address], [id number], 4 12:10:11 Kenalog 10 mg/mL suspension for injection 2023 024 [email or web address]12063, [address] [place] [address], [id number], 4 12:10:16 bupivacaine HCl 0.5 % (5 mg/mL) injection solution 2023 024 [email or web address] [facility] #75480, [address] [place] [address], [id number], 4 12:10:11 Kenalog 10 mg/mL suspension for injection 20[email or web address] [facility] #22831, [address] [place] [address], [id number], 4 12:10:16 bupivacaine HCl 0.5 % (5 mg/mL) injection solution 2022 023 [email or web address] [facility] #64887, [address] [place] [address], [id number], 4 12:10:11 Kenalog 10 mg/mL suspension for injection 2022 023 [email or web address] [facility] #08444, [address] [place] [address], [id number], 4 12:10:16 Patient TargetsNo targets recorded. Patient InstructionsNo instructions recorded. Reason for Referral None Reported. Results Created Date Observation Date Name Description Value Unit Range Abnormal Flag Note LastModifiedBy Organization Detail LastModifiedTime 08/04/20 24 XR, shoul amos No observ ation record ed. [facility] [place] [address], [place], [address], 08/04/2024 12:32:20 03/12/20 25 xr shoul amos RT 2V+ [facility] [address] [facility] [place] [address] Patien t Name: PARTH TEJEDA Access ion #: [id number] Sex: M : 1944 8 Dictat [...] 2024 11:07: 01 AM Page 1 INTERFACE [facility] (Imaging) [address] [place], [address], 03/12/2025 12:09:12 Result Notes None recorded. Problems Name Problem SNOMED Code Status Onset Date Resolution Date Notes Provider Name and Address Organization Details Recorded Time Bilateral shoulder osteoarthr itis 4401813985802 08 Active 2021 Not Available [facility] 3 06:02:59 Bilateral elbow joint pain 1329342005390 9103 Active 2021 Not Available [facility] 3 06:02:59 Localized, primary osteoarthr itis of the shoulder region 135296688 Active Not Available [facility] 3 06:02:59 Ulnar nerve entrapment at elbow 340360446 Active 2021 Not Available [facility] 3 06:02:59 Osteoarthr itis 984122536 Active 2021 Not Available [facility] 3 06:02:59 Pain of right knee joint 9783125560833 00 Active 2021 Not Available [facility] 3 06:02:59 Pain of left shoulder joint 0563969892129 9109 Active 2022 Татьяна Ramos [place], [place] [employer] [facility] 3 16:37:17 Pain of right shoulder joint 2354589600129 9100 Active 2022 DORON Santacruz, [place] [employer] [facility] 3 11:46:24 Localized, primary osteoarthr itis of the shoulder region 758774375 Active 2023 DIANE Burgos, [employer] [facility] 4 11:56:39 Problem Notes None recorded. Procedures Surgical History Date Name Laterality Status Provider Name and Address Organization Details Recorded Time 03/18/20 24 Ortho - Cortisone Injection completed Kat Kerr NP [address], [place], [address], [facility] 03/18/2024 11:34:39 10/09/20 23 Ortho - Cortisone Injection completed Sarthak Mcfadden MD [address] [facility] [address], [place], [address], [facility] 10/09/2023 12:22:35 01/06/20 21 Knee completed DORON Santacruz [place] [employer] [facility] 10/09/2023 11:47:56 Knee Replacement completed Not Available [facility] 01/10/2023 05:56:21 Shoulder completed DORON Santacruz [place] [employer] [facility] 10/09/2023 11:47:36 Imaging Results Imaging Date Name Status LastModified by Organiz ation Details LastModified Time 08/04/2024 XR, shoulder completed [facility] [place] [address], [place], [address], 08/04/2024 12:32:20 03/12/2025 xr shoulder RT 2V+ active INTERFACE [facility] (Imaging) [address], [place], [address], 03/12/2025 12:09:12 Procedure Notes None recorded. Medical [...] administe red by the provider 04/07 completed [facility]: [id number] [id number] Not Available Not Available [...] Updated DateTime 10/09/2023 182.88 cm 28.2 kg/m2 92157.21 g 4 DORON Santacruz [facility] 10/09/2023 11:46:57 Date Recorded Body height Body mass index (BMI) Body weight Pain severity - 0-10 verbal numeric rating [Score] - Reported Provider Name and Address Organization Details Last Updated DateTime 03/18/2024 182.88 cm 27.7 kg/m2 71082.84 g 7 DORON Santacruz [employer] [facility] 03/18/2024 11:23:42 Date Recorded Body height Body mass index (BMI) Body weight Provider Name and Address Organization Details Last Updated DateTime 08/04/2024 182.88 cm 27.4 kg/m2 19681.66 g DIANE Burgos [facility] 08/04/2024 11:56:08 Date Recorded Body height Body mass index (BMI) Body weight Provider Name and Address Organization Details Last Updated DateTime 10/31/2024 182.88 cm 28.6 kg/m2 65414.99 g DIANE Burgos [facility] 10/31/2024 12:09:35 Date Recorded Body height Body mass index (BMI) Body weight Provider Name and Address Organization Details Last Updated DateTime 01/05/2025 182.88 cm 28.8 kg/m2 97609.58 g DIANE Burgos [facility] 01/05/2025 11:42:51 Social History None recorded. Functional Status Question Answer Note LastModified by Organizat ion Details LastModified Time What is your level of alcohol consumption? Occasional [id number] Information not available 01/10/2023 Mental Status None recorded. Family History Nothing Reported. Medical History Condition Response ARTHRITIS Y Past Encounters Encounter ID Performer Location Encounter Start Date Encounter Closed Date Diagnosis/Indication Diagnosis SNOMED-CT Code Diagnosis ICD10 Code Diagnosis Note [id number] [facility]_ DEFAULT_1 _1 , 04/04/2021 00:00:00 04/04/2021 09:35:24 [id number] [facility]_ DEFAULT_1 _1 , 04/12/2021 00:00:00 04/12/2021 10:32:06 [id number] [facility]_[facility] I[facility]_ DEFAULT_1 _1 , 04/19/2021 00:00:00 04/19/2021 12:09:12 [id number] [facility]_[facility]_ DEFAULT_1 _1 , 04/25/2021 00:00:00 04/25/2021 14:27:28 [id number] [facility]_[facility] I[facility]_ DEFAULT_1 _1 , 05/03/2021 00:00:00 05/03/2021 12:07:25 [id number] Darien Kingston MD [facility] [place] [address] [place] [address] 05/23/2021 00:00:00 05/23/2021 14:34:49 [id number] Leah Palacios MD [facility] [place] [address] [place] [address] 08/02/2021 00:00:00 08/02/2021 13:18:38 [id number] Darien Kingston MD [facility] [place] [address] [place] [address] 12/19/2021 00:00:00 12/19/2021 14:27:40 [id number] Leah Palacios MD [facility] [place] [address] [place] [address] 12/27/2021 00:00:00 12/27/2021 11:16:27 [id number] Darien Kingston MD [facility] [place] [address] [place] [address] 02/24/2022 00:00:00 02/24/2022 12:40:53 [id number] Leah Palacios MD [facility] [place] [address] [place] [address] 03/07/2022 00:00:00 03/07/2022 12:51:26 [id number] Leah Palacios MD [facility] [place] [address] [place] [address] 03/28/2022 00:00:00 03/28/2022 12:02:14 [id number] Darien Kingston MD [facility] [place] [address] [place] [address] 04/07/2022 00:00:00 04/07/2022 09:25:13 [id number] Darien Kingston MD [facility] [place] [address] [place] [address] 04/17/2022 00:00:00 04/17/2022 15:11:14 [id number] Darien Kingston MD [facility] [place] [address] [place] [address] 04/28/2022 00:00:00 04/28/2022 10:11:40 [id number] Leah Palacios MD [facility] [place] [address] [place] [address] 05/05/2022 00:00:00 05/05/2022 12:00:02 [id number] Darien Kingston MD [facility] [place] [address] [place] [address] 05/17/2022 00:00:00 05/17/2022 17:05:52 [id number] MD LUIGI MurrayS[facility] [place] [address] [place] [address] 05/29/2022 00:00:00 05/29/2022 15:15:32 [id number] MD SYLVIA Plata[facility] [place] [address] [place] [address] 06/14/2022 00:00:00 06/14/2022 16:54:44 [id number] Leah Palacios MD [facility] [place] [address] [place] [address] 07/04/2022 00:00:00 07/04/2022 12:37:34 [id number] Leah Palacios MD [facility] [place] [address] [place] [address] 09/19/2022 00:00:00 09/19/2022 11:49:38 [id number] Leah Palacios MD [facility] [place] [address] [place] [address] 10/10/2022 00:00:00 10/10/2022 13:39:45 [id number] MD LUIGI PlataS[facility] [place] [address] [place] [address] 01/09/2023 00:00:00 01/09/2023 12:41:45 [id number] Leah Palacios MD [facility] [place] [address] [place] [address] 03/13/2023 11:01:51 03/13/2023 11:25:57 Osteoarthritis 091120853 M19.012 we injected the right shoulder with [...] activities of daily living during the day [id number] Leah Palacios MD [facility] [place] [address] [place] [address] 04/11/2023 15:44:46 04/11/2023 16:09:42 Osteoarthritis 716687808 M19.012 patient will continue with the sling for 4 weeks. We will get therapy underway to work on range of motion. No external rotation beyond 20 for the 1st 4 weeks to let the subscapula ris he will we will see him back in a few weeks for AP Y lateral and axillary x-ray views of the left shoulder [id number] Leah Palacios MD [facility] [place] [address] [place] [address] 05/02/2023 14:47:19 05/02/2023 15:19:39 Osteoarthritis 516170525 M19.012 patient can now discontinu e the [...] on strengthen ing as tolerated after that [id number] Darien Kingston MD [facility] [place] [address] [place] [address] 05/11/2023 09:33:22 05/11/2023 10:11:55 History of right total knee replacement 7020643778 591810 Z96.651 [id number] Leah Palacios MD [facility] [place] [address] [place] [address] 05/23/2023 14:10:33 05/23/2023 14:46:43 Pain of left shoulder joint 7401141574 8163265 M25.512 Localized, primary osteoarthritis of the shoulder region 619020059 M19.019 patient can externally rotate and do [...] again around 6 months and a year [id number] Sarthak Mcfadden MD [facility] [place] [address] [place] [address] 06/20/2023 11:03:40 06/20/2023 11:31:46 Bilateral shoulder osteoarthritis 2218612958 71045 M19.721 [id number] Sarthak Mcfadden MD [facility] [place] [address] [place] [address] 07/10/2023 11:43:09 07/10/2023 12:07:44 Bilateral shoulder osteoarthritis 9284691271 15216 M19.011 Pain of ri ght shoulder joint 7699546850 3271623 M25.060 [id number] Sarthak Mcfadden MD [facility] [place] [address] [place] [address] 10/09/2023 11:25:28 10/09/2023 12:07:10 Pain of right shoulder joint 5481037825 9277901 M25.302 [id number] Sarthak Mcfadden MD [facility] [place] [address] [place] [address] 03/18/2024 11:20:24 03/18/2024 11:36:55 Pain of right shoulder joint 9275416487 3867667 M25.131 [id number] Sarthak Mcfadden MD [facility] [place] [address] [place] [address] 08/04/2024 11:52:59 08/04/2024 12:24:14 Pain of right shoulder joint 6727995110 9311956 M25.511 Localized, primary osteoarthritis of the shoulder region 486355762 M19.494 [id number] Sarthak Mcfadden MD [facility] [place] [address] [place] [address] 10/31/2024 11:51:25 10/31/2024 12:52:35 Pain of right shoulder joint 0809845697 1069268 M25.511 Localized, primary osteoarthritis of the shoulder region 942375009 M19.744 [id number] Sarthak Mcfadden MD [facility] [place] [address] [place] [address] 01/05/2025 11:40:33 01/05/2025 12:04:01 Localized, primary osteoarthritis of the shoulder region 620842730 M19.019 Pain of ri ght shoulder joint 2549357074 7728000 M25.511 Health Concerns Section Related Observation LastModified by Organization Detai ls LastModified Time None Recorded Concern Status LastModified by Organization Details LastModified Time None Recorded Advance Directives Directive None Recorded Payers Encounter Date Sequence Insurance Name Policy Number Policy Garcia Covered Member ID Garcia Member ID Guarantor Name 10/09/2023 1 [employer] (MEDICARE REPLACEMENT HMO) [id number] Parth A Tejeda [id number] Parth A Tejeda 03/18/2024 1 [employer] (MEDICARE REPLACEMENT HMO) [id number] Parth A Tejeda [id number] Parth A Tejeda 08/04/2024 1 [employer] (MEDICARE REPLACEMENT HMO) [id number] Parth A Tejeda [id number] Parth A Tejeda 10/31/2024 1 [employer] (MEDICARE REPLACEMENT HMO) [id number] Parth A Tejeda [id number] Parth A Tejeda 01/05/2025 1 [employer] (MEDICARE REPLACEMENT HMO) [id number] Parth A Tejeda [id number] Parth A Tejeda Notes Date Note Type Note Provider Name and Address Organization Details Recorded Time 08/04/2024 text/html Patient returns with right shoulder pain he has severe zfey-rf-ciqk primary osteoarthritis of the glenohumeral joint. He [...] since his last x-rays. AG Ma [address], [place], [address], [place] [facility] [place] [employer] 08/04/2024 12:33:33 10/31/2024 text/html Patient returns complaining of right shoulder pain. Previous x-rays show severe uxmq-dq-oory glenohumeral osteoarthritis of the right shoulder. He [...] the patient. AG Ma [address] [facility], [place], [address], [facility] [employer] [facility] 10/31/2024 12:56:27 01/05/2025 text/html the patient retu rns with right shoulder pain he has severe glenohumeral osteoarthritis which is txvx-fq-wawi in nature. He comes in every now [...] a shoulder arthroplasty. AG Ma [address], [place], [address], [facility] [employer] [facility] 01/05/2025 12:04:27
== END 2025-03-27 09:51 | disposition home or self-care (01) ==
PROVIDERS: PCP Family Medicine; Visit Provider Urology
DX: N20.0 Calculus of kidney (principal)
CPT/HCPCS: 74018

== ENCOUNTER 2025-04-14 09:37 | Outpatient (CLI) | payer MEDICARE, SELFPAY ==
--- OUTSIDE RECORDS SUMMARY | 2025-04-14 09:57 | XMS_ITS | Data Portability ---
Author Organization [place] - [facility], Main Office Address [address] [place] [address] Care Team Providers Care Canine Service Instructor Trainer Name Role Phone IMELDA HAMILTON Primary Care [...] x-rays reviewed, RTSA on the left side, vpze-pu-hbbb arthritis of the glenohumeral joint on the [...] of the right shoulder joint which is rohb-gn-rnys. We talked about treatment options he wanted [...] of the right shoulder joint which is zzsc-vn-tclo. At his request under sterile conditions I [...] is going to call his office in [facility] and talked to him about [...] DO Not Attach Compendium, Do Not Delete/merge, [id number] 11:45:27 injection/a spiration joint/bursa (PROC) 2023 024 [email or web address] In-Office Order, Internal Use Only DO Not Attach Compendium DO Not Attach Compendium, Do Not Delete/merge, [id number] 12:14:10 injection/a spiration joint/bursa (PROC) 2023 024 [email or web address] In-Office Order, Internal Use Only DO Not Attach Compendium DO Not Attach Compendium, Do Not Delete/merge, [id number] 11:57:54 injection/a spiration joint/bursa (PROC) 2023 024 [email or web address] In-Office Order, Internal Use Only DO Not Attach Compendium DO Not Attach Compendium, Do Not Delete/merge, [id number] 4 09:40:04 injection/a spiration joint/bursa (PROC) 2022 023 [email or web address] In-Office Order, Internal Use Only DO Not Attach Compendium DO Not Attach Compendium, Do Not Delete/merge, [id number] 23:05:12 Surgeries None recorded. Imaging XR, shoulder 2023 024 [facility], [address], [place], [address], 4 12:51:09 Medication Orders bupivacaine HCl 0.5 % (5 mg/mL) injection solution 2024 025 [facility] #24383, [address], [id number], 5 12:14:39 Kenalog 10 mg/mL suspension for injection 2024 025 [facility], [address] [place] [address], [id number], 5 12:14:39 bupivacaine HCl 0.5 % (5 mg/mL) injection solution 2023 024 [facility] #04342, [address] [place] [address], [id number], 4 12:56:30 Kenalog 10 mg/mL suspension for injection 2023 024 [facility], [address], [id number], 4 12:56:30 bupivacaine HCl 0.5 % (5 mg/mL) injection solution 2023 024 [email or web address]156, [address] [place] [address], [id number], 4 12:10:11 Kenalog 10 mg/mL suspension for injection 2023 024 [email or web address]1945, [address] [place] [address], [id number], 4 12:10:16 bupivacaine HCl 0.5 % (5 mg/mL) injection solution 2023 024 [email or web address]68784, [address] [place] [address], [id number], 4 12:10:11 Kenalog 10 mg/mL suspension for injection 2023 024 [email or web address]172, [address] [place] [address], [id number], 4 12:10:16 bupivacaine HCl 0.5 % (5 mg/mL) injection solution 2022 023 [email or web address] [facility] #43497, [address] [place] [address], [id number], 4 12:10:11 Kenalog 10 mg/mL suspension for injection 2022 023 [email or web address] [facility] #34405, [address] [place] [address], [id number], 4 12:10:16 Patient TargetsNo targets recorded. Patient InstructionsNo instructions recorded. Reason for Referral None Reported. Results Created Date Observation Date Name Description Value Unit Range Abnormal Flag Note LastModifiedBy Organization Detail LastModifiedTime 08/04/20 24 XR, shoul amos No observ ation record ed. [facility] [place] [address], [place], [address], 08/04/2024 12:32:20 03/12/20 25 xr shoul amos RT 2V+ [facility] [address] [facility] [place] [address] Patien t Name: PARTH TEJEDA Access ion #: [id number] Sex: M : 1944 8 Dictat [...] 2024 11:07: 01 AM Page 1 INTERFACE [facility] (Imaging) [address] [place], [address], 03/12/2025 12:09:12 Result Notes None recorded. Problems Name Problem SNOMED Code Status Onset Date Resolution Date Notes Provider Name and Address Organization Details Recorded Time Bilateral shoulder osteoarthr itis 9118850218309 08 Active 2021 Not Available [employer] 3 06:02:59 Bilateral elbow joint pain 1601984469042 9103 Active 2021 Not Available [employer] 3 06:02:59 Localized, primary osteoarthr itis of the shoulder region 615530416 Active Not Available [employer] 3 06:02:59 Ulnar nerve entrapment at elbow 919660594 Active 2021 Not Available [facility] 3 06:02:59 Osteoarthr itis 496384700 Active 2021 Not Available [facility] 3 06:02:59 Pain of right knee joint 8593829631686 00 Active 2021 Not Available [facility] 3 06:02:59 Pain of left shoulder joint 6029613951285 9109 Active 2022 Татьяна Ramos marco, [place] [employer] [facility] [employer] [facility] 3 16:37:17 Pain of right shoulder joint 6805380639819 9100 Active 2022 DORON Santacruz, [place] [employer] [facility] [employer] [facility] 3 11:46:24 Localized, primary osteoarthr itis of the shoulder region 603828610 Active 2023 DIANE Burgos, [employer] [facility] [employer] [facility] 4 11:56:39 Problem Notes None recorded. Procedures Surgical History Date Name Laterality Status Provider Name and Address Organization Details Recorded Time 03/18/20 24 Ortho - Cortisone Injection completed Kat Kerr NP [address] [address], [place], [address], [facility] [employer] [facility] 03/18/2024 11:34:39 10/09/20 23 Ortho - Cortisone Injection completed Sarthak Mcfadden MD [address] [facility] [address], [place], [address], [facility] [employer] [facility] 10/09/2023 12:22:35 01/06/20 21 Knee completed DORON Santacruz [place] [employer] [facility] [employer] [facility] 10/09/2023 11:47:56 Knee Replacement completed Not Available [facility] 01/10/2023 05:56:21 Shoulder completed DORON Santacruz [facility] [employer] [facility] 10/09/2023 11:47:36 Imaging Results None recorded. Procedure Notes None recorded. Medical Equipment None [...] 20 mg by injection route. 2024 active NDC: 0003- 0494- 20 Not Available Not Available [...] administe red by the provider 04/07 completed NDC: 0409- 4276- 17 Not Available Not Available [...] Updated DateTime 01/05/2025 182.88 cm 28.8 kg/m2 62638.58 g Merari Erik, [employer] 01/05/2025 11:42:51 Date Recorded Body height Body mass index (BMI) Body weight Provider Name and Address Organization Details Last Updated DateTime 03/18/2024 182.88 cm 27.7 kg/m2 14196.84 g Michelle Delgado [employer] 03/18/2024 11:23:39 Date Recorded Body height Body mass index (BMI) Body weight Provider Name and Address Organization Details Last Updated DateTime 08/04/2024 182.88 cm 27.4 kg/m2 25099.66 g Merari Erik, [employer] 08/04/2024 11:56:08 Date Recorded Body height Body mass index (BMI) Body weight Provider Name and Address Organization Details Last Updated DateTime 10/09/2023 182.88 cm 28.2 kg/m2 02717.21 g Michelle Delgado [employer] 10/09/2023 11:46:46 Date Recorded Body height Body mass index (BMI) Body weight Provider Name and Address Organization Details Last Updated DateTime 10/31/2024 182.88 cm 28.6 kg/m2 05152.99 g [employer] 10/31/2024 12:09:35 Social History None recorded. Functional Status Question Answer Note LastModified by Organizat ion Details LastModified Time What is your level of alcohol consumption? Occasional [id number] Information not available 01/10/2023 Mental Status None recorded. Family History Nothing Reported. Medical History Condition Response ARTHRITIS Y Past Encounters Encounter ID Performer Location Encounter Start Date Encounter Closed Date Diagnosis/Indication Diagnosis SNOMED-CT Code Diagnosis ICD10 Code Diagnosis Note [id number] [facility]_ DEFAULT_1 _1 , 04/04/2021 00:00:00 04/04/2021 09:35:24 [id number] [facility] _[facility]HENA_M IGRATION_ DEFAULT_1 _1 , 04/12/2021 00:00:00 04/12/2021 10:32:06 [id number] [facility] _ATHENA_M IGRATION_ DEFAULT_1 _1 , 04/19/2021 00:00:00 04/19/2021 12:09:12 [id number] [facility] _[facility]HENA_M IGRATION_ DEFAULT_1 _1 , 04/25/2021 00:00:00 04/25/2021 14:27:28 [id number] [facility] _[facility]HENA_M IGRATION_ DEFAULT_1 _1 , 05/03/2021 00:00:00 05/03/2021 12:07:25 [id number] Darien Kingston MD [facility] [place] [address] [place] [address] 05/23/2021 00:00:00 05/23/2021 14:34:49 [id number] Leah Palacios MD [facility] [place] [address] [place] [address] 08/02/2021 00:00:00 08/02/2021 13:18:38 [id number] Darien Kingston MD [facility] [place] [address] [place] [address] 12/19/2021 00:00:00 12/19/2021 14:27:40 [id number] Leah Palacios MD [facility] [place] [address] [place] [address] 12/27/2021 00:00:00 12/27/2021 11:16:27 [id number] Darien Kingston MD [facility] [place] [address] [place] [address] 02/24/2022 00:00:00 02/24/2022 12:40:53 [id number] Leah Palacios MD [facility] [place] [address] [place] [address] 03/07/2022 00:00:00 03/07/2022 12:51:26 [id number] Leah Palacios MD [facility] [place] [address] [place] [address] 03/28/2022 00:00:00 03/28/2022 12:02:14 [id number] Darien Kingston MD [facility] [place] [address] [place] [address] 04/07/2022 00:00:00 04/07/2022 09:25:13 [id number] Darien Kingston MD [facility] [place] [address] [place] [address] 04/17/2022 00:00:00 04/17/2022 15:11:14 [id number] Darien Kingston MD [facility] [place] [address] [place] [address] 04/28/2022 00:00:00 04/28/2022 10:11:40 [id number] Leah Palacios MD [facility] [place] [address] [place] [address] 05/05/2022 00:00:00 05/05/2022 12:00:02 [id number] MD LUIGI MurrayS[facility] [place] [address] [place] [address] 05/17/2022 00:00:00 05/17/2022 17:05:52 [id number] Darien Kingston MD [facility] [place] [address] [place] [address] 05/29/2022 00:00:00 05/29/2022 15:15:32 [id number] Leah Palacios MD [facility] [place] [address] [place] [address] 06/14/2022 00:00:00 06/14/2022 16:54:44 [id number] Leah Palacios MD [facility] [place] [address] [place] [address] 07/04/2022 00:00:00 07/04/2022 12:37:34 [id number] Leah Palacios MD [facility] [place] [address] [place] [address] 09/19/2022 00:00:00 09/19/2022 11:49:38 [id number] Leah Palacios MD [facility] [place] [address] [place] [address] 10/10/2022 00:00:00 10/10/2022 13:39:45 [id number] Leah Palacios MD [facility] [place] [address] [place] [address] 01/09/2023 00:00:00 01/09/2023 12:41:45 [id number] Leah Palacios MD [facility] [place] [address] [place] [address] 03/13/2023 11:01:51 03/13/2023 11:25:57 Osteoarthritis 075394190 M19.012 we injected the right shoulder with [...] activities of daily living during the day [id number] Leah Palacios MD [facility] [place] [address] [place] [address] 04/11/2023 15:44:46 04/11/2023 16:09:42 Osteoarthritis 658210184 M19.012 patient will continue with the sling for 4 weeks. We will get therapy underway to work on range of motion. No external rotation beyond 20 for the 1st 4 weeks to let the subscapula ris he will we will see him back in a few weeks for AP Y lateral and axillary x-ray views of the left shoulder [id number] MD SYLVIA [facility] [place] [address] [place] [address] 05/02/2023 14:47:19 05/02/2023 15:19:39 Osteoarthritis 783816829 M19.012 patient can now discontinu e the [...] on strengthen ing as tolerated after that [id number] Darien Kingston MD [facility] [place] [address] [place] [address] 05/11/2023 09:33:22 05/11/2023 10:11:55 History of right total knee replacement 2560178482 681330 Z96.651 [id number] MD [facility]IN [facility] [place] [address] [place] [address] 05/23/2023 14:10:33 05/23/2023 14:46:43 Pain of left shoulder joint 7736576104 1099206 M25.512 Localized, primary osteoarthritis of the shoulder region 368710824 M19.019 patient can externally rotate and do [...] again around 6 months and a year [id number] Sarthak Mcfadden MD [facility] [place] [address] [place] [address] 06/20/2023 11:03:40 06/20/2023 11:31:46 Bilateral shoulder osteoarthritis 8457028563 72841 M19.443 [id number] Sarthak Mcfadden MD [facility] [place] [address] [place] [address] 07/10/2023 11:43:09 07/10/2023 12:07:44 Bilateral shoulder osteoarthritis 5584843086 39494 M19.011 Pain of ri ght shoulder joint 2621902941 9412662 M25.225 [id number] Sarthak Mcfadden MD [facility] [place] [address] [place] [address] 10/09/2023 11:25:28 10/09/2023 12:07:10 Pain of right shoulder joint 5402565327 6610404 M25.155 [id number] Sarthak Mcfadden MD [facility] [place] [address] [place] [address] 03/18/2024 11:20:24 03/18/2024 11:36:55 Pain of right shoulder joint 2168383227 7765567 M25.131 [id number] Sarthak Mcfadden MD [facility] [place] [address] [place] [address] 08/04/2024 11:52:59 08/04/2024 12:24:14 Pain of right shoulder joint 1418094745 1631412 M25.511 Localized, primary osteoarthritis of the shoulder region 892166068 M19.190 [id number] Sarthak Mcfadden MD [facility] [place] [address] [place] [address] 10/31/2024 11:51:25 10/31/2024 12:52:35 Pain of right shoulder joint 9504943792 2539694 M25.511 Localized, primary osteoarthritis of the shoulder region 049058418 M19.206 [id number] Sarthak Mcfadden MD [facility] [place] [address] [place], [place] [address] 01/05/2025 11:40:33 01/05/2025 12:04:01 Localized, primary osteoarthritis of the shoulder region 381506013 M19.019 Pain of ri ght shoulder joint 0407913454 8186330 M25.511 Health Concerns Section Related Observation LastModified by Organization Detai ls LastModified Time None Recorded Concern Status LastModified by Organization Details LastModified Time None Recorded Advance Directives Directive None Recorded Payers Encounter Date Sequence Insurance Name Policy Number Policy Garcia Covered Member ID Garcia Member ID Guarantor Name 10/09/2023 1 [employer] (MEDICARE REPLACEMENT/A DVANTAGE - HMO) [id number] Parth A Tejeda [id number] Parth A Tejeda 03/18/2024 1 [employer] (MEDICARE REPLACEMENT/A DVANTAGE - HMO) [id number] Parth A Tejeda [id number] Parth A Tejeda 08/04/2024 1 [employer]US (MEDICARE REPLACEMENT/A DVANTAGE - HMO) [id number] Parth A Tejeda [id number] Parth A Tejeda 10/31/2024 1 [employer]US (MEDICARE REPLACEMENT/A DVANTAGE - HMO) [id number] Parth A Tejeda [id number] Parth A Tejeda 01/05/2025 1 [employer] (MEDICARE REPLACEMENT/A DVANTAGE - HMO) [id number] Parth A Tejeda [id number] Parth A Tejeda Notes Date Note Type Note Provider Name and Address Organization Details Recorded Time 08/04/2024 text/html Patient returns with right shoulder pain he has severe mxvm-md-nqkx primary osteoarthritis of the glenohumeral joint. He [...] last x-rays. AG Ma [address], [facility] [address], [place], [address], [employer] 08/04/2024 12:33:33 10/31/2024 text/html Patient returns complaining of right shoulder pain. Previous x-rays show severe kzgk-qo-wugc glenohumeral osteoarthritis of the right shoulder. He [...] the patient. AG [facility] [address], [facility] [address], [place], [address], [employer] [facility] 10/31/2024 12:56:27 01/05/2025 text/html the patient retu rns with right shoulder pain he has severe glenohumeral osteoarthritis which is gqmc-ln-xvnh in nature. He comes in every now [...] before for a shoulder arthroplasty. AG Ma [address] [place] [address], [facility] [address], [place], [address], [place] [facility] 01/05/2025 12:04:27
[2025-04-14 10:36] LABS: Prothrombin Time 13.4 Seconds (11.1-14.7)
[2025-04-14 10:37] LABS: Partial Thromboplastin Time 27.3 Seconds (22.3-36.8)
== END 2025-04-14 09:38 | disposition home or self-care (01) ==
LOC: ANHSURGERY 09:40
PROVIDERS: PCP Family Medicine; Visit Provider Urology
DX: N20.0 Calculus of kidney (principal); Z01.818 Encounter for other preprocedural examination
CPT/HCPCS: 36415; 85610; 85730; 87086

== ENCOUNTER 2025-04-24 02:23 | Day surgery (SDC) | payer MEDICARE, SELFPAY ==
[2025-04-10 10:11] VITALS: BMI 28.0
--- NOTE | 2025-04-10 10:16 | PC.NURSE ---
Report to the Outpatient Waiting Room, entrance under the green pavilion located off [facility], at time __0830am on date _04/24/25 . Planned Procedure Time: __10:30am .? Time changes happen often and if your time is changed the preop area will call you the afternoon before. - You and your visitor will be asked to self-screen and do not enter if you have any COVID symptoms. Please call surgeon if you need to reschedule. - A mask is optional within the hospital at this time. Patients may have clear liquids (water, carbonated beverages, clear teas, apple juice) until 3 hours prior to surgery with a maximum of 20 ounces. - No food from midnight until time of surgery and no smoking, or chewing tobacco (or any form of nicotine). No chewing gum, candy or mints. (0730am) Take only the following medications with a SIP of water on the morning of surgery: Sertraline, Tylenol & Meclizine if needed DO NOT STOP ANY OF YOUR OTHER PRESCRIPTION MEDICATIONS PRIOR TO SURGERY EXCEPT THE FOLLOWING Medications to discontinue per physician ___Naproxen for [address] Andre _( pt already is HOLDING THIS) Date to take last dose____04/15/25 Hold all vitamins and supplements for 3 days per anesthesiologist.Date to take last dose is 04/20/25 Please no make-up, nail greek, hairspray, perfume, deodorant, or body powder the day of surgery.? No jewelry (including any body piercings) or valuables the day of surgery, leave them at home.? Please take a shower or bath the night before, or the morning of, surgery with an antibacterial soap.? Wear comfortable, loose fitting clothing.? - Jewelry must be removed prior to entering the operating room.? Rings and piercings that are not removed may be cut off. - The hospital will not accept responsibility for valuables.? - Please leave all valuables, including medications, at home the day of surgery. If you are going home after surgery, a licensed driver/guide must drive you home.? - NO public transportation without another adult if you receive anesthesia. - We recommend that an adult stay with you for 24 hours following discharge. - We also recommend that you do not drive, make important decision, drink alcoholic beverages, or take any drugs that were not prescribed by your health care provider for at least 24 hours after your discharge time. Follow any additional instructions given to you from your surgeon. Telephone instructions given to _Patient and asked if any additional questions and then verbalized understanding. Patient advised to call surgeon office or pre surgery nurse liaison [phone] if any additional questions.
--- NOTE | 2025-04-22 06:48 | P.HP_ITS ---
History of Present Illness History of Present Illness Consent: Risks, benefits, and alternatives have been discussed and questions answered. Patient agrees to proceed with procedure. Chief complaint: Left Kidney Stone-repeat Narrative: Ney Bergman is a 79 year old male who did well with recent left ESWL for large renal pelvic stone. He is tolerating his stent nicely with only scant hematuria. ?KUB shows his large renal pelvic stone has fragmented but multiple pieces still remain, most in the lower pole. ?I will have him repeat a KUB in ?10 days and will decide at that point regarding stent removal versus repeat ESWL Addendum Note?(Jony Andre MD; 03/31/2025 4:46 PM) KUB: ?Persistent significant stone fragments. ?Will schedule repeat left ESWL. [facility] Past Medical History Medical History Prediabetes Mixed hyperlipidemia Lumbosacral radiculopathy at L4 Erectile dysfunction Functional dyspepsia Inguinal hernia, left Ureteral calculus, left History of mumps History of measles History of chicken pox Surgical History Surgical History H/O shoulder replacement Left 2022 History of total right knee replacement (TKR) History of elbow surgery (~2018) History of total left knee replacement (TKR) (~2019) Family History Family History Father Patient's father is Social History Social History Smoking packs per day: 1 Smoking cigarettes per day: 20.0 Years smoked: 11 Smoking pack-years: 11.00 Smoking status: Former smoker Tobacco type: cigarettes Smoking end date: 11/12/74 Alcohol intake: never Substance use: never Substance use type: does not use Lack of Transportation: No Lack of Food: Never True Current Housing: I Have Housing Concerned About Future Housing: No Difficulty Paying Gas/Electric Bills: No Difficulty Paying for Meds: No Currently Unemployed: No Education: High School Diploma/GED Difficulty w/ Childcare or Family Care: No Living arrangements: with family Additional living arrangements comments: Gender identity (if verbalized by the patient): Male Spiritual care concerns: No Meds Home Medications and Allergies Home Medications ?Medication ?Instructions ?Recorded ?Confirmed ?Type cholecalciferol (vitamin D3) 25 25 mcg PO DAILY 04/21/20 04/10/25 History mcg (1,000 unit) tablet multivitamin 1 tablet PO DAILY 04/21/20 04/10/25 History acetaminophen 325 mg capsule 325 mg PO Q6H PRN pain 10/10/21 04/10/25 History (Tylenol) loratadine 10 mg tablet (Claritin) 10 mg PO DAILY 03/26/23 04/10/25 History atorvastatin 10 mg tablet See Rx Instructions .Route 11/19/24 04/10/25 Rx .COMPLEX #90 tabs sertraline 50 mg tablet (Zoloft) 50 mg PO DAILY #90 tabs 02/09/25 04/10/25 Rx meclizine 25 mg tablet 25 mg PO QID PRN dizziness 02/20/25 04/10/25 History naproxen 500 mg tablet See Rx Instructions .Route 02/23/25 04/10/25 Rx .COMPLEX #180 tabs tadalafil 20 mg tablet (Cialis) 20 mg PO DAILY PRN sexual activity 03/29/25 04/10/25 Rx #27 tabs omeprazole 40 mg capsule,delayed 40 mg PO DAILY 04/10/25 04/10/25 History release Allergies Allergy/AdvReac Type Severity Reaction Status Date / Time No Known Allergies Allergy Verified 04/10/25 10:08 Exam Const: General: no acute distress Resp: Effort & Inspection: normal respiratory effort GI: Inspection: non-distended GI Palp: No abdominal tenderness and No Guarding due to palpation present (GI) Auscultation: normal bowel sounds Assessment and Plan Assessment and plan (1) Left renal stone: Code(s): N20.0 - Calculus of kidney Status: Acute Assessment and Plan: * Left ESWL
[2025-04-24] VITALS (7 sets, daily range): BP systolic 123–147; BP diastolic 69–87; PULSE 52–71; RESP 12–20; TEMP 36.5–36.8; O2SAT 96–100; BMI 28.4
--- NOTE | ~2025-04-24 | XR_ITS ---
XR abdomen/kub 1V 04/24/2025 08:51 Indication: Left renal stones Procedure: KUB Comparison: Comparison to multiple prior studies sequentially, with oldest reviewed study dated 2024. Findings: There are bilateral renal stones with multiple stones clustered in the lower pole of the le ft kidney. Left internal ureteral stent in expected position. Nonobstructive bowel gas pattern. Sever e lower thoracic and lumbar spondylosis. Impression: 1: Bilateral nephrolithiasis. Reviewed, dictated and finalized at location [] Impression: 1: Bilateral nephrolithiasis.
--- OUTSIDE RECORDS SUMMARY | 2025-04-24 02:28 | XMS_ITS | Data Portability ---
Author Organization [place] [employer], Main Office Address [address] [place] [address] Care Team Providers Care Comber Setter Name Role Phone IMELDA HAMILTON Primary Care Provider [phone] IMELDA HAMILTON Referring Provider Assessment Encounter Date [...] x-rays reviewed, RTSA on the left side, rtbq-xw-xpni arthritis of the glenohumeral joint on the [...] of the right shoulder joint which is rhmq-zm-vktq. We talked about treatment options he wanted [...] of the right shoulder joint which is qsoh-zm-bkej. At his request under sterile conditions I [...] is going to call his office in [facility] and talked to him about [...] DO Not Attach Compendium, Do Not Delete/merge, [id number] 5 11:45:27 injection/a spiration joint/bursa (PROC) 2023 024 [email or web address] In-Office Order, Internal Use Only DO Not Attach Compendium DO Not Attach Compendium, Do Not Delete/merge, [id number] 4 12:14:10 injection/a spiration joint/bursa (PROC) 2023 024 [email or web address] In-Office Order, Internal Use Only DO Not Attach Compendium DO Not Attach Compendium, Do Not Delete/merge, [id number] 4 11:57:54 injection/a spiration joint/bursa (PROC) 2023 024 [email or web address] In-Office Order, Internal Use Only DO Not Attach Compendium DO Not Attach Compendium, Do Not Delete/merge, [id number] 4 09:40:04 injection/a spiration joint/bursa (PROC) 2022 023 [email or web address] In-Office Order, Internal Use Only DO Not Attach Compendium DO Not Attach Compendium, Do Not Delete/merge, [id number] 3 23:05:12 Surgeries None recorded. Imaging XR, shoulder 2023 024 [facility] [place], [address] [facility] [address], [place], [address], 4 12:51:09 Medication Orders bupivacaine HCl 0.5 % (5 mg/mL) injection solution 2024 025 [facility] #17752, [address], [id number], 5 12:14:39 Kenalog 10 mg/mL suspension for injection 2024 025 [facility], [address] [facility] [address] [place] [address], [id number], 5 12:14:39 bupivacaine HCl 0.5 % (5 mg/mL) injection solution 2023 024 [facility], [address] [place] [address], [id number], 4 12:56:30 Kenalog 10 mg/mL suspension for injection 2023 024 [facility]05[facility], [address], [id number], 4 12:56:30 bupivacaine HCl 0.5 % (5 mg/mL) injection solution 2023 024 [email or web address] [facility] #[facility]12, [address] [place] [address], [id number], 4 12:10:11 Kenalog 10 mg/mL suspension for injection 2023 024 [email or web address] [facility], [address] [place] [address], [id number], 4 12:10:16 bupivacaine HCl 0.5 % (5 mg/mL) injection solution 2023 024 [email or web address] [facility]33312, [address] [place] [address], [id number], 4 12:10:11 Kenalog 10 mg/mL suspension for injection 2023 024 [email or web address] [facility] #10558, [address] [place] [address], [id number], 4 12:10:16 bupivacaine HCl 0.5 % (5 mg/mL) injection solution 2022 023 [email or web address] [facility] #13215, [address] [place] [address], [id number], 4 12:10:11 Kenalog 10 mg/mL suspension for injection 2022 023 [email or web address] [facility] #05881, [address] [place] [address], [id number], 4 12:10:16 Patient TargetsNo targets recorded. Patient InstructionsNo instructions recorded. Reason for Referral None Reported. Results Created Date Observation Date Name Description Value Unit Range Abnormal Flag Note LastModifiedBy Organization Detail LastModifiedTime 08/04/20 24 XR, shoul amos No observ ation record ed. [facility] [place] [address], [place], [address], 08/04/2024 12:32:20 03/12/20 25 xr shoul amos RT 2V+ [facility] [address] [facility] [place] [address] Patien t Name: PARTH TEJEDA Access ion #: [id number] Sex: M : 1944 8 Dictat [...] 2024 11:07: 01 AM Page 1 INTERFACE [facility] (Imaging) [address] [place], [address], 03/12/2025 12:09:12 Result Notes None recorded. Problems Name Problem SNOMED Code Status Onset Date Resolution Date Notes Provider Name and Address Organization Details Recorded Time Bilateral shoulder osteoarthr itis 1847638132195 08 Active 2021 Not Available [employer] 3 06:02:59 Bilateral elbow joint pain 4426021807734 9103 Active 2021 Not Available [employer] 3 06:02:59 Localized, primary osteoarthr itis of the shoulder region 127800490 Active Not Available [employer] 3 06:02:59 Ulnar nerve entrapment at elbow 865461664 Active 2021 Not Available [facility] 3 06:02:59 Osteoarthr itis 113215595 Active 2021 Not Available [facility] 3 06:02:59 Pain of right knee joint 5428244154240 00 Active 2021 Not Available [facility] 3 06:02:59 Pain of left shoulder joint 0015829554050 9109 Active 2022 Татьяна Ramos marco, [place] [employer] [facility] [employer] [facility] 3 16:37:17 Pain of right shoulder joint 7229995582978 9100 Active 2022 DORON Santacruz, [place] [employer] [facility] [email or web address] [facility] 3 11:46:24 Localized, primary osteoarthr itis of the shoulder region 349805241 Active 2023 DIANE Burgos, [employer] [facility] [employer] [facility] 4 11:56:39 Problem Notes None recorded. Procedures Surgical History Date Name Laterality Status Provider Name and Address Organization Details Recorded Time 03/18/20 24 Ortho - Cortisone Injection completed Kat Kerr NP [address] [address], [place], [address], [facility] [employer] [facility] 03/18/2024 11:34:39 10/09/20 23 Ortho - Cortisone Injection completed Sarthak Mcfadden MD [address] [facility] [address], [place], [address], [facility] [employer] [facility] 10/09/2023 12:22:35 01/06/20 21 Knee completed DORON Santacruz MA [employer] [facility] [email or web address] [facility] 10/09/2023 11:47:56 Knee Replacement completed Not Available Replaced by [facility] 01/10/2023 05:56:21 Shoulder completed DORON Santacruz [facility] [email or web address] [facility] 10/09/2023 11:47:36 Imaging Results None recorded. Procedure [...] Updated DateTime 01/05/2025 182.88 cm 28.8 kg/m2 35048.58 g Merari Erik, [employer] 01/05/2025 11:42:51 Date Recorded Body height Body mass index (BMI) Body weight Provider Name and Address Organization Details Last Updated DateTime 03/18/2024 182.88 cm 27.7 kg/m2 41922.84 g Michelle Delgado [employer] 03/18/2024 11:23:39 Date Recorded Body height Body mass index (BMI) Body weight Provider Name and Address Organization Details Last Updated DateTime 08/04/2024 182.88 cm 27.4 kg/m2 82453.66 g Merari Erik, [employer] 08/04/2024 11:56:08 Date Recorded Body height Body mass index (BMI) Body weight Provider Name and Address Organization Details Last Updated DateTime 10/09/2023 182.88 cm 28.2 kg/m2 15384.21 g Michelle Delgado [employer] 10/09/2023 11:46:46 Date Recorded Body height Body mass index (BMI) Body weight Provider Name and Address Organization Details Last Updated DateTime 10/31/2024 182.88 cm 28.6 kg/m2 06150.99 g [employer] 10/31/2024 12:09:35 Social History None recorded. Functional Status Question Answer Note LastModified by Organizat ion Details LastModified Time What is your level of alcohol consumption? Occasional [id number] Information not available 01/10/2023 Mental Status None recorded. Family History Nothing Reported. Medical History Condition Response ARTHRITIS Y Past Encounters Encounter ID Performer Location Encounter Start Date Encounter Closed Date Diagnosis/Indication Diagnosis SNOMED-CT Code Diagnosis ICD10 Code Diagnosis Note [id number] [facility] _[facility]HENA_M IGRATION_ DEFAULT_1 _1 , 04/04/2021 00:00:00 04/04/2021 09:35:24 [id number] [facility] _ATHENA_M IGRATION_ DEFAULT_1 _1 , 04/12/2021 00:00:00 04/12/2021 10:32:06 [id number] [facility] _ATHENA_M IGRATION_ DEFAULT_1 _1 , 04/19/2021 00:00:00 04/19/2021 12:09:12 [id number] [facility] _ATHENA_M IGRATION_ DEFAULT_1 _1 , 04/25/2021 00:00:00 04/25/2021 14:27:28 [id number] [facility] _ATHENA_M IGRATION_ DEFAULT_1 _1 , 05/03/2021 00:00:00 05/03/2021 12:07:25 [id number] Darien Kingston MD [facility] [place] [address] [facility] [address] [place] [address] 05/23/2021 00:00:00 05/23/2021 14:34:49 [id number] Leah Palacios MD [facility] [place] [address] [facility] [address] [place] [address] 08/02/2021 00:00:00 08/02/2021 13:18:38 [id number] Darien Kingston MD [facility] [place] [address] [facility] [address] [place] [address] 12/19/2021 00:00:00 12/19/2021 14:27:40 [id number] Leah Palacios MD [facility] [place] [address] [place] [address] 12/27/2021 00:00:00 12/27/2021 11:16:27 [id number] Darien Kingston MD [facility] [place] [address] [place] [address] 02/24/2022 00:00:00 02/24/2022 12:40:53 [id number] Leah Palacios MD [facility] [place] [address] [place] [address] 03/07/2022 00:00:00 03/07/2022 12:51:26 [id number] Leah Palacios MD [facility] [place] [address] [place] [address] 03/28/2022 00:00:00 03/28/2022 12:02:14 [id number] Darien Kingston MD [facility] [place] [address] [place] [address] 04/07/2022 00:00:00 04/07/2022 09:25:13 [id number] Darien Kingston MD [facility] [place] [address] [place] [address] 04/17/2022 00:00:00 04/17/2022 15:11:14 [id number] Darien Kingston MD [facility] [place] [address] [place] [address] 04/28/2022 00:00:00 04/28/2022 10:11:40 [id number] Leah Palacios MD [facility] [place] [address] [place] [address] 05/05/2022 00:00:00 05/05/2022 12:00:02 [id number] MD LUIGI MurrayS[facility] [place] [address] [place] [address] 05/17/2022 00:00:00 05/17/2022 17:05:52 [id number] Darien Kingston MD [facility] [place] [address] [place] [address] 05/29/2022 00:00:00 05/29/2022 15:15:32 [id number] Leah Palacios MD [facility] [place] [address] [place] [address] 06/14/2022 00:00:00 06/14/2022 16:54:44 [id number] Leah Palacios MD [facility] [place] [address] [place] [address] 07/04/2022 00:00:00 07/04/2022 12:37:34 [id number] Leah Palacios MD [facility] [place] [address] [place] [address] 09/19/2022 00:00:00 09/19/2022 11:49:38 [id number] Leah Palacios MD [facility] [place] [address] [place] [address] 10/10/2022 00:00:00 10/10/2022 13:39:45 [id number] Leah Palacios MD [facility] [place] [address] [place] [address] 01/09/2023 00:00:00 01/09/2023 12:41:45 [id number] Leah Palacios MD [facility] [place] [address] [place] [address] 03/13/2023 11:01:51 03/13/2023 11:25:57 Osteoarthritis 310425557 M19.012 we injected the right shoulder with [...] activities of daily living during the day [id number] Leah [facility]acios MD [facility] [place] [address] [place] [address] 04/11/2023 15:44:46 04/11/2023 16:09:42 Osteoarthritis 495502885 M19.012 patient will continue with the sling for 4 weeks. We will get therapy underway to work on range of motion. No external rotation beyond 20 for the 1st 4 weeks to let the subscapula ris he will we will see him back in a few weeks for AP Y lateral and axillary x-ray views of the left shoulder [id number] MD SYLVIA [facility] [place] [address] [place] [address] 05/02/2023 14:47:19 05/02/2023 15:19:39 Osteoarthritis 335895866 M19.012 patient can now discontinu e the [...] on strengthen ing as tolerated after that [id number] Darien Kingston MD [facility] [place] [address] [place] [address] 05/11/2023 09:33:22 05/11/2023 10:11:55 History of right total knee replacement 5076847937 474726 Z96.651 [id number] MD MAIN [facility] [place] [address] [place] [address] 05/23/2023 14:10:33 05/23/2023 14:46:43 Pain of left shoulder joint 9102505787 0858675 M25.512 Localized, primary osteoarthritis of the shoulder region 736980390 M19.019 patient can externally rotate and do [...] again around 6 months and a year [id number] Sarthak Mcfadden MD [facility] [place] [address] [place] [address] 06/20/2023 11:03:40 06/20/2023 11:31:46 Bilateral shoulder osteoarthritis 7820381677 54326 M19.147 [id number] Sarthak Mcfadden MD [facility] [place] [address] [place] [address] 07/10/2023 11:43:09 07/10/2023 12:07:44 Bilateral shoulder osteoarthritis 4615941179 33950 M19.011 Pain of ri ght shoulder joint 7441386387 3108275 M25.377 [id number] Sarthak Mcfadden MD [facility] [place] [address] [place] [address] 10/09/2023 11:25:28 10/09/2023 12:07:10 Pain of right shoulder joint 6456701117 1971751 M25.311 [id number] Sarthak Mcfadden MD [facility] [place] [address] [place] [address] 03/18/2024 11:20:24 03/18/2024 11:36:55 Pain of right shoulder joint 4021930075 0331039 M25.144 [id number] Sarthak Mcfadden MD [facility] [place] [address] [place] [address] 08/04/2024 11:52:59 08/04/2024 12:24:14 Pain of right shoulder joint 1015559611 8286135 M25.511 Localized, primary osteoarthritis of the shoulder region 256498621 M19.429 [id number] Sarthak Mcfadden MD [facility] [place] [address] [place] [address] 10/31/2024 11:51:25 10/31/2024 12:52:35 Pain of right shoulder joint 8215929005 6747875 M25.511 Localized, primary osteoarthritis of the shoulder region 775648501 M19.468 [id number] Sarthak Mcfadden MD [facility] [place] [address] [place] [address] 01/05/2025 11:40:33 01/05/2025 12:04:01 Localized, primary osteoarthritis of the shoulder region 349016623 M19.019 Pain of ri ght shoulder joint 9884181396 4817164 M25.511 Health Concerns Section Related Observation LastModified by Organization Detai ls LastModified Time None Recorded Concern Status LastModified by Organization Details LastModified Time None Recorded Advance Directives Directive None Recorded Payers Insurance Date Sequence Insurance Name Policy Number Policy Garcia Covered Member ID Garcia Member ID Guarantor Name 04/21/2025 1 [employer] - GOLD PLUS (MEDICARE REPLACEMENT/A DVANTAGE - HMO) [id number] Parth A Tejeda [id number] Parth A Tejeda Notes Date Note Type Note Provider Name and Address Organization Details Recorded Time 08/04/2024 text/html Patient returns with right shoulder pain he has severe otnm-jv-aooz primary osteoarthritis of the glenohumeral joint. He [...] year since his last x-rays. AG Ma [address] [place] [address], [address] [address], [place], [address], [facility] [employer] 08/04/2024 12:33:33 10/31/2024 text/html Patient returns complaining of right shoulder pain. Previous x-rays show severe eoar-sy-hmfa glenohumeral osteoarthritis of the right shoulder. He [...] AG Ma [address], [place], [address], [employer] 10/31/2024 12:56:27 01/05/2025 text/html the patient retu rns with right shoulder pain he has severe glenohumeral osteoarthritis which is sixd-ve-msha in nature. He comes in every now [...] AG Ma [address], [place], [address], [employer] 01/05/2025 12:04:27
--- NOTE | 2025-04-24 06:16 | WPDHPUPDATE1 ---
History and Physical Update Update Date/Time: 04/24/25 06:16 History and Physical has been reviewed, including an updated exam of the patient. There are NO changes in the patient's condition. Risks, benefits, and alternatives have been discussed and questions answered. Patient agrees to proceed with procedure.
[2025-04-24] MEDS: LACTATED RINGERS 1,000 ML 30 ML IV CONT (09:20)
--- NOTE | 2025-04-24 09:56 | WPDANESEPPF ---
Anes - Initial Pre Proc Eval Procedure: Operation Date: 04/24/25 10:30 Proposed Procedures p Left Extracorporeal Shock Wave Lithotripsy - Jony Andre MD Date/Time: 04/24/25 09:56 Surgeon: Jony Andre MD Pre Op Diagnosis: Left Kidney Stone-repeat Patient Data Age: 79 Gender: M Height: 1.83 m Weight: 95.1 kg Last Vital Signs Temp 36.8 C 04/24/25 09:15 Pulse 71 04/24/25 09:15 Resp 16 04/24/25 09:15 BP 123/69 04/24/25 09:15 Pulse Ox 97 04/24/25 09:15 O2 Del Method Room Air 04/24/25 09:15 Allergies Allergy/AdvReac Type Severity Reaction Status Date / Time No Known Allergies Allergy Verified 04/24/25 09:02 Home Medications ?Medication ?Instructions ?Recorded ?Confirmed ?Type cholecalciferol (vitamin D3) 25 25 mcg PO DAILY 04/21/20 04/10/25 History mcg (1,000 unit) tablet multivitamin 1 tablet PO DAILY 04/21/20 04/10/25 History loratadine 10 mg tablet (Claritin) 10 mg PO DAILY 03/26/23 04/10/25 History atorvastatin 10 mg tablet See Rx Instructions .Route 11/19/24 04/10/25 Rx .COMPLEX #90 tabs sertraline 50 mg tablet (Zoloft) 50 mg PO DAILY #90 tabs 02/09/25 04/10/25 Rx meclizine 25 mg tablet 25 mg PO QID PRN dizziness 02/20/25 04/10/25 History naproxen 500 mg tablet See Rx Instructions .Route 02/23/25 04/24/25 Rx .COMPLEX #180 tabs tadalafil 20 mg tablet (Cialis) 20 mg PO DAILY PRN sexual activity 03/29/25 04/10/25 Rx #27 tabs omeprazole 40 mg capsule,delayed 40 mg PO DAILY 04/10/25 04/10/25 History release acetaminophen 500 mg capsule 1,000 mg PO Q6H PRN pain 04/24/25 04/24/25 History Patient hx anesthesia problems: none Family hx anesthesia problems: none Results Review: All pre-operative results and documents have been reviewed as part of the pre-operative evaluation. [facility] Past Medical History Medical History Prediabetes Mixed hyperlipidemia Lumbosacral radiculopathy at L4 Erectile dysfunction Functional dyspepsia Inguinal hernia, left Ureteral calculus, left History of mumps History of measles History of chicken pox Surgical History Surgical History H/O shoulder replacement Left 2022 History of total right knee replacement (TKR) History of elbow surgery (~2018) History of total left knee replacement (TKR) (~2019) Family History Family History Father Patient's father is Social History Social History Smoking packs per day: 1 Smoking cigarettes per day: 20.0 Years smoked: 11 Smoking pack-years: 11.00 Smoking status: Former smoker Tobacco type: cigarettes Smoking end date: 11/12/74 Alcohol intake: never Substance use: never Substance use type: does not use Lack of Transportation: No Lack of Food: Never True Current Housing: I Have Housing Concerned About Future Housing: No Difficulty Paying Gas/Electric Bills: No Difficulty Paying for Meds: No Currently Unemployed: No Education: High School Diploma/GED Difficulty w/ Childcare or Family Care: No Living arrangements: with family Additional living arrangements comments: Gender identity (if verbalized by the patient): Male Spiritual care concerns: No Anes - Eval Final PreProcedure Day of Procedure 04/24/25 09:56 Patient weight: overweight Heart: regular rate and rhythm Lungs: decreased breath sounds Airway: Mallampati scale class III Neurological: alert and oriented Last oral intake: >/= 8 hours ASA classification: III Emergent: no Anesthetic plan: proceed Anesthesia type and monitoring: general LMA and standard monitoring Results Review: All pre-operative results and documents have been reviewed as part of the pre-operative evaluation. Informed Consent: The patient's anesthetic plan and its attendant risks and benefits were discussed with the patient/family/POA. Questions were solicited and answers provided to the satisfaction of the patient/family/POA.
[2025-04-24] MEDS: ceFAZolin 2 GM/D5W 50 ML 2 GM/50 ML BAG IVPB (10:13)
--- NOTE | 2025-04-24 11:16 | W.PM.PROC2 ---
Procedure Note - Detailed Date of Procedure 04/24/25 Pre-op Diagnosis Left Kidney Stone Post-op Diagnosis Same Procedure Performed Left ESWL Surgeon Jony Andre MD Anesthesia General Description of Procedure The patient was brought to the operative suite where he was placed in the supine position on the Dornier lithotripsy table. The focal point of the lithotripter was placed at a collection of stone fragments in left mid and lower pole. A total of 2500 shocks were delivered at a power setting of 1-5. There appeared to be excellent fragmentation of the stone. Due to the extent of fragmentation and concern of possible Steinstrasse his stent in place. The patient tolerated the procedure well and was taken to the recovery room in good condition. Drains No Pathology None sent Disposition PACU
== END 2025-04-24 12:30 | disposition home or self-care (01) ==
PROVIDERS: PCP Family Medicine; Visit Provider Urology
PROC: (CPT 50590; principal; 2025-04-24 10:30)
DX: N20.0 Calculus of kidney (principal); E78.2 Mixed hyperlipidemia; R73.03 Prediabetes; N52.9 Male erectile dysfunction, unspecified; K30 Functional dyspepsia; Z79.1 Long term (current) use of non-steroidal anti-inflammatories (NSAID); Z98.890 Other specified postprocedural states; Z87.891 Personal history of nicotine dependence
CPT/HCPCS: 50590; 74018; J0690; J2405; J2704; J7120

== ENCOUNTER 2025-05-04 12:47 | Outpatient (CLI) | payer MEDICARE, SELFPAY ==
--- NOTE | ~2025-05-04 | XR_ITS ---
EXAM/PROCEDURE: XR abdomen/kub 1V - 05/04/2025 13:08 CDT HISTORY: 79 years old Male with LEFT KIDNEY STONE COMPARISON: None available. TECHNIQUE: AP view(s) of the abdomen. FINDINGS: The bowel gas pattern is normal. There is no evidence for obstruction. No free intraperitoneal air is identified on this radiograph. The visualized soft tissue shadows are unremarkable. Dextroscoliosis. Double-J stent in place. Focal radiopacity in the left mid abdomen may represent nicole al calculus. Visualized portions of lung bases are clear. IMPRESSION: Focal radiopacity in the left midabdomen may represent renal calculus. Ultrasound of the kidneys can be performed for further evaluation to rule out renal calculus, as clinically indicated. Reviewed, dictated and finalized at location A. IMPRESSION: Focal radiopacity in the left midabdomen may represent renal calculus. Ultrasou nd of the kidneys can be performed for further evaluation to rule out renal alla culus, as clinically indicated.
== END 2025-05-04 12:48 | disposition home or self-care (01) ==
PROVIDERS: PCP Family Medicine; Visit Provider Urology
DX: N20.0 Calculus of kidney (principal)
CPT/HCPCS: 74018